=== PATIENT | female | born 1945 | race Caucasian/White ===

== ENCOUNTER → 2017-08-07 07:33 | Outpatient (CLI) | payer MEDICARE, SELFPAY ==
[2017-08-07 10:42] LABS: Alanine Aminotransferase 30 U/L (12-78); Albumin Level 3.9 gm/dL (3.4-5.0); Albumin/Globulin Ratio 1.3 (1.1-1.8); Alkaline Phosphatase 81 U/L (46-116); Aspartate Amino Transferase 24 U/L (15-37); Bilirubin,Total 0.4 mg/dL (0.2-1.0); Blood Urea Nitrogen 16 mg/dL (7-18); Carbon Dioxide 31 mmol/L (21.0-32.0); Chloride 102 mmol/L (98-107); Cholesterol 210 mg/dL (140-200); Creatinine,Serum 0.64 mg/dL (0.55-1.02); Estimated Glomerular Filt Rate 91 ml/min (>60); Free T4 (Free Thyroxine) 1.15 ng/dl (0.76-1.46); GFR (African American) 111 ML/MIN (>60); Globulin 3.1 gm/dl (1.3-3.2); Glucose 85 mg/dL (74-106); HDL Cholesterol 103 mg/dL (29-89); LDL Cholesterol 86 mg/dL (0-130); Sodium 140 mmol/L (136-145); Thyroid Stimulating Hormone 0.85 uIU/ml (0.358-3.740); Triglycerides 103 mg/dL (30-200); VLDL Cholesterol 21 mg/dL (0-40)
[2017-08-08 11:18] LABS: Creatinine, Urine 44.2 mg/dL (Not Estab.); Microalbumin, Urine 4.6 ug/mL (Not Estab.)
== END ==
PROVIDERS: PCP Family Medicine; Visit Provider Family Medicine
DX: E78.00 Pure hypercholesterolemia, unspecified (principal); E03.9 Hypothyroidism, unspecified
CPT/HCPCS: 36415; 80053; 80061; 82043; 84439; 84443

== ENCOUNTER → 2017-10-01 09:33 | Outpatient (POV) | payer MEDICARE, SELFPAY | PROVIDERS: Family Provider Family Medicine; PCP Family Medicine; Visit Provider Physician Assistant | DX: Z00.00 Encounter for general adult medical examination without abnormal findings (principal) ==

== ENCOUNTER → 2017-11-05 10:09 | Outpatient (CLI) | payer MEDICARE, SELFPAY ==
--- NOTE | 2017-11-05 10:15 | XR_ITS ---
XR DEXA axial skeleton HISTORY: ITS.REASON: OSTEOPENIA ORDERING PHYSICIAN: Maged Stoll MD PATIENT AGE: 72 years COMPARISON: 12/19/2011 FINDINGS: The BMD measured at the Femur Total left is 0.913 g/cm squared with a T score of -0.8. This is considered normal according to the World Health Organization criteria. Fracture risk is low. L1-L4 density has a T score of 0.4. The lumbar spine density has increased by 4% in the hip density has decreased by 4.6% compared to the previous exam.. IMPRESSION: Normal bone density. Suggest follow-up exam October 2019
== END ==
PROVIDERS: Family Provider Family Medicine; PCP Family Medicine; Visit Provider Family Medicine
DX: M85.89 Other specified disorders of bone density and structure, multiple sites (principal)
CPT/HCPCS: 77080

== ENCOUNTER → 2018-03-27 09:09 | Outpatient (CLI) | payer MEDICARE, SELFPAY ==
--- NOTE | 2018-03-27 09:14 | XR_ITS ---
XR foot wt bearing LT 3V HISTORY: ITS.REASON: pain ORDERING PHYSICIAN: Katia Hernandez DPM PATIENT AGE: 72 years COMPARISON: None FINDINGS: There is minimal hallux valgus with hypertrophic change of the distal aspect of the first metatarsal. Normal alignment. Small calcaneal spur. No fracture or dislocation. IMPRESSION: Minimal hallux valgus with hypertrophy of the distal first metatarsal
--- NOTE | 2018-03-27 09:14 | XR_ITS ---
XR foot wt bearing RT 3V HISTORY: ITS.REASON: pain ORDERING PHYSICIAN: Katia Hernandez DPM PATIENT AGE: 72 years COMPARISON: None FINDINGS: There is mild hallux valgus with osteoarthritis of the first MTP joint and bunion formation. No fracture or dislocation. Small calcaneal spur. IMPRESSION: Hallux valgus with osteoarthritis of the first MTP joint and bunion formation
== END ==
PROVIDERS: PCP Family Medicine; Visit Provider Podiatrist
DX: M79.673 Pain in unspecified foot (principal)
CPT/HCPCS: 73630

== ENCOUNTER → 2018-05-13 10:23 | Outpatient (CLI) | payer MEDICARE, SELFPAY ==
--- NOTE | 2018-05-13 10:25 | MM_ITS ---
MM Dig screening mamm BI w/CAD ORDERING PHYSICIAN : Maged Stoll MD PATIENT AGE: 72 years GENDER: Female COMPARISON: April 2014, 2014 2016. INDICATION: ITS.REASON: SCREENING takes Evista. No new complaints Family history. Maternal cousin TECHNIQUE: Standard CC and MLO images were obtained. R2 CAD reviewed. FINDINGS: Lower density breast. Mild fatty replacement Minimal residual fibroglandular elements. .. No suspicious dominant mass or calcifications. CAD computer review highlights no areas of concern either RIGHT BREAST:Stable right breast. Follow-up in one year LEFT BREAST:. Stable left breast. Minor asymmetric density at the lateral left breast on cc view is similar to previous studies from 2014. No new findings IMPRESSION: . No significant new findings. No areas of concern. Bilateral follow-up recommended one year BI-RADS Category: 1 Negative RECOMMENDED FOLLOW-UP: 1YR 1 YEAR FOLLOW-UP (A letter has been sent to the patient regarding results of the study.)
== END ==
PROVIDERS: PCP Family Medicine; Visit Provider Family Medicine
DX: Z12.31 Encounter for screening mammogram for malignant neoplasm of breast (principal)
CPT/HCPCS: 77067

== ENCOUNTER → 2018-11-15 09:49 | Outpatient (CLI) | payer MEDICARE, SELFPAY ==
--- NOTE | 2018-11-15 10:01 | CT_ITS ---
CT abdomen pelvis w con CLINICAL INDICATION: . Umbilical pain ITS.REASON: ABD PAIN ORDERING PHYSICIAN: Maged Stoll MD PATIENT AGE: 73 years COMPARISON: None TECHNIQUE: Axial images obtained with sagittal and coronal reformats. All CT scans at the facility use one or more dose reduction, viz: automated exposure control, ma/kV adjustment per patient size (including targeted exams where dose is matched to indication, i.e. head), or iterative reconstruction technique. PROCEDURE: Oral Contrast: None IV Contrast: 75 mL's Optiray 350. FINDINGS: Lower thorax: No acute finding The liver, spleen, adrenal glands, and pancreas have an unremarkable appearance. There are postcholecystectomy changes. There is a 4 cm left renal cyst along the posterior and superior aspect of the left kidney. No renal or ureteral calculi are evident.. There is mild ectasia of both renal collecting systems but no obvious ureteral calculi Unremarkable appendix. No intestinal obstruction or free air. No evidence of diverticulitis. There is mild thickening of the sigmoid colon and rectum nonspecific but could be related to colitis/proctitis. No pelvic mass or abnormal pelvic fluid collection No acute bony anomalies are evident. There are degenerative changes in the lumbar spine. IMPRESSION: 1. Mild thickening of the sigmoid colon and rectum which could be related to nondistention or mild proctocolitis. 2. Minimal ectasia of both renal collecting systems without obvious ureteral calculus. 3. Otherwise negative CT abdomen pelvis
--- NOTE | 2018-11-15 10:40 | HMH.ITSHM ---
Current Home Medications as stated by this patient Anca Martinez or floor representative. []ATORVASTATIN RALOXIFENE LOSARTAN LEVOTHYROXINE
== END ==
PROVIDERS: PCP Family Medicine; Visit Provider Family Medicine
DX: R10.33 Periumbilical pain (principal)
CPT/HCPCS: 74177

== ENCOUNTER → 2018-11-26 10:50 | Outpatient (POV) | payer MEDICARE, SELFPAY | PROVIDERS: Visit Provider Dermatology | DX: Z00.00 Encounter for general adult medical examination without abnormal findings (principal) ==

== ENCOUNTER 2019-01-03 10:23 | Day surgery (SDC) | payer MEDICARE, SELFPAY ==
[2018-12-31 14:00] VITALS: BMI 24.7
[2019-01-03] VITALS (7 sets, daily range): BP systolic 101–173; BP diastolic 57–91; PULSE 68–85; RESP 16–18; TEMP 36.1–36.2; O2SAT 97–99
--- NOTE | 2019-01-03 12:12 | P.PN_ITS ---
[facility] Anesthesia Checklist - Patient Identification Patient Identification: Arm Band, Verbal (Name & ) - Structural Data Admitted From: Home Planned Operative Procedure/s: Colonoscopy Consent for Planned Operative Procedure(s) Verified: Yes Verified Documents: Surgical Consent, History and Physical - NPO Status Verified Time NPO: 00:00 - Additional verifications Anesthesia Reactions: Yes (PONV) - Airway Assessment C-Spine Mobility Assessed: Yes TMJ Mobility Assessed: Yes Dentition: Good Dentition - Neurological Assessment Level of Consciousness: Awake, Alert, Appropriate, Follows Commands Hx Seizures: No Numbness or tingling in extremities: No - Anesthesia Plan Anesthesia Risk discussed: Yes Anesthesia Plan: Verified ASA Class: II Anesthesia Type: MAC [facility] History I have reviewed the patient's past medical history: Yes Medical History: Reports:: Hyperlipidemia, Hypertension Denies:: Diabetes Mellitus Type 1, Diabetes Mellitus Type 2, Internal Pacemaker, Lung Disease, Seizures *Have you ever received a pneumonia vaccine?: Yes *Have you received a flu vaccine this season?: No Other Medical History: Reports: Hypothyroidism Other Surgeries: Yes: Cholecystectomy, Tubal Ligation, Other. No: Pacemaker - *Social History Smoking Status: Never smoker Alcohol Intake: never Alcohol Intake Frequency:: other *Occupational Status:: other (NA) *Travel in the last 8 weeks: None (Unknown) Family Hx:: Hypertension, Diabetes
--- NOTE | 2019-01-03 12:24 | HMH.PROC ---
[facility] Procedure Note Procedure Note:: Colonoscopy Procedure Report: Colonoscopy with cold snare polypectomy Endoscopist: Sami Ellsworth II, MD Referring physician: Maged Stoll MD Date of Procedure: January 03, 2019 Equipment: Olympus 180 variable stiffness pediatric colonoscope Sedation: MAC sedation Indication: Mrs. Martinez is a 73-year-old female who is here for diagnostic colonoscopy. She states that she had antibiotics for a sinus infection in July 2018. She had repeat antibiotics again and August 2018 for a tooth infection. I believe that she had a repeat sinus infection thereafter with more antibiotics. She developed left lower quadrant abdominal pain and discomfort. She did have a CT scan of the abdomen on November 15, 2018 that showed mild thickening of the sigmoid colon and rectum possibly related to proctocolitis. The patient reports no change in her bowel habits or rectal bleeding. She reports no weight loss. She does state that she had a maternal grandmother and 2 maternal uncles with colon cancer. She had a paternal aunt with Crohn's disease. Her last colonoscopy was 9 years ago at [facility]. Procedure: Prior to the procedure, a history and physical exam was performed, and patient's medications and allergies were reviewed. The risks, benefits and alternatives of the sedation and procedure were discussed with the patient. All questions were answered and informed consent was obtained. The patient was brought to the procedure room. Patient identification and proposed procedure were verified by the physician and the nurse. The patient was placed in a left lateral decubitus position and the scope was passed under direct vision. Throughout the procedure, the patient's blood pressure, pulse, and oxygen saturations were monitored continuously. The colonoscopy was accomplished without difficulty. The patient tolerated the procedure well. Findings: On digital rectal examination there was normal rectal tone. There were no external hemorrhoids. The colonoscope was introduced through the anal canal to the rectum and advanced to the cecum. The ileocecal valve and appendiceal orifice were identified. The scope was advanced a short distance into the ileum which appeared grossly normal. The scope was then withdrawn into the colon. The cecum, ascending and transverse colon and mucosa were grossly normal. There was a 3 to 4 mm polyp in the transverse colon removed via cold snare polypectomy. There were scattered diverticuli throughout the descending and sigmoid colon (LEFT colon). The rectum itself was normal. Upon retroflexion within the rectum there were grade 1 internal hemorrhoids. The preparation was excellent throughout with [place] Preparation Score of 9. The cecal time was 12 minutes. Impression: 1. Diminutive transverse colon polyp 2. Left-sided diverticulosis 3. Grade 1 internal hemorrhoids Plan: I do feel that she may have low-grade diverticulitis resulting in her symptoms. We will discuss dietary measures and fiber regimen. I will follow-up the polyp histology. If the polyp is adenomatous, I would consider repeat surveillance colonoscopy in 5 years especially based upon her family history.
== END 2019-01-03 13:27 | disposition home or self-care (01) ==
LOC: OUTP 10:24
PROVIDERS: PCP Family Medicine; Visit Provider Internal Medicine Gastroenterology
PROC: 0DJD8ZZ Inspection of Lower Intestinal Tract, Via Natural or Artificial Opening Endoscopic (ICD-10-PCS; CPT 45378; principal; 2019-01-03 11:30)
DX: K63.5 Polyp of colon (principal); K57.30 Diverticulosis of large intestine without perforation or abscess without bleeding; K64.0 First degree hemorrhoids; Z79.2 Long term (current) use of antibiotics
CPT/HCPCS: 45385; 88305

== ENCOUNTER → 2019-06-02 09:09 | Outpatient (CLI) | payer MEDICARE, SELFPAY ==
--- NOTE | 2019-06-02 09:12 | MM_ITS ---
PROCEDURE: MM DIG SCREENING MAMM BI W/CAD CLINICAL INDICATION: SCREENING There is a history of breast cancer patient's paternal cousin. COMPARISON: DMSB DIG MAMM-SCREEN DOMONIQUE W/CAD from 05/09/2017 DEXAAX XR DEXA axial skeleton from 11/05/2017 [facility] MM Dig screening mamm BI w/CAD from 05/13/2018 TECHNIQUE: Standard CC and MLO images were obtained. R2 CAD reviewed. FINDINGS: Mild diffuse scattered fibroglandular densities are seen throughout both breasts. There are 2 mole markers left breast. There is a benign-appearing calcification right breast. There is a stable small area of asymmetric glandular tissue upper outer quadrant left breast there is no new or suspicious lesion in either breast and no suspicious microcalcifications. IMPRESSION: Fibrofatty parenchyma with no suspicious lesions seen BI-RAD Category: 2 Benign Finding(s) FOLLOW-UP: 1YR 1 Year Follow-up (A letter has been sent to the patient regarding results of the study.) Dictated by: Dr. Cain Cordova MD 06/04/2019 14:[address] Cain Cordova MD in [place] 06/04/2019 14:41
== END ==
PROVIDERS: PCP Family Medicine; Visit Provider Family Medicine
DX: Z12.31 Encounter for screening mammogram for malignant neoplasm of breast (principal)
CPT/HCPCS: 77067

== ENCOUNTER → 2019-12-17 09:02 | Outpatient (CLI) | payer MEDICARE, SELFPAY ==
--- NOTE | 2019-12-17 09:07 | XR_ITS ---
PROCEDURE: XR DEXA AXIAL SKELETON CLINICAL HISTORY: OSTEOPENIA COMPARISON: ABDPELW CT abdomen pelvis w con from 11/15/2018 FINDINGS: Total rib right proximal femur density is 0.884 grams/centimeters sq with T-score of -0 point Total left proximal femur density is 0.822 grams/centimeters sq with T-score -1.0 L1-L4 density is 1.035 grams/centimeters sq with T-score -0.1 IMPRESSION: Normal bone density with low fracture risk. Suggest follow-up exam in 2 years Dictated by: Michael Campoverde MD 12/17/2019 12:33 Electronically signed by Michael Campoverde MD in [place] 12/17/2019 12:33
== END ==
PROVIDERS: PCP Family Medicine; Visit Provider Family Medicine
DX: M85.89 Other specified disorders of bone density and structure, multiple sites (principal)
CPT/HCPCS: 77080

== ENCOUNTER → 2020-06-04 12:48 | Outpatient (CLI) | payer MEDICARE, SELFPAY ==
--- NOTE | 2020-06-04 12:51 | MM_ITS ---
PROCEDURE: MM DIG SCREENING MAMM BI W/CAD Referring Doctor: Maged Stoll Patient Age:74Y CLINICAL INDICATION: SCREENING takes Evista.. No new complaints.. Family history: Maternal with cousin with breast cancer . COMPARISON: MG [facility]MSB DIGITAL MAMM-SCREEN BILATERAL from 12/18/2011 MG DIG MAMMO BILAT SCREENING from 04/21/2013 MG DIG MAMMO BILAT SCREENING from 04/22/2014 MG MAMMO SCREENING DIGITAL BILAT from 04/26/2015 MG MAMMO SCREENING DIGITAL BILAT from 05/03/2016 MG DMSB DIG MAMM-SCREEN DOMONIQUE W/CAD from 05/09/2017 [facility] DEXAAX XR DEXA axial skeleton from 11/05/2017 MG [facility] MM Dig screening mamm BI w/CAD from 05/13/[address] abdomen pelvis w con from 11/15/2018 MG MM DIG SCREENING MAMM BI W/CAD from 06/02/2019 TECHNIQUE: Standard CC and MLO images were obtained. R2 CAD reviewed. Bilateral digital breast tomosynthesis included. FINDINGS: [id number] residual fibroglandular elements but no new suspicious or dominant mass. No suspicious calcifications . Right breast. No new areas of concern . Left breast. On the MLO small 4.5 mm area of density in the deep superior left breast I believe is similar to 2015, 2016 mammogram. With no corresponding density is seen on evident on the CC views. Also note this small density becomes less evident on left MLO tomosynthesis image set. Only vaguely suggested on tomosynthesis image 20 but most likely reflect a longstanding feature However would suggest a follow-up left mammogram in 6-8 months to further confirm stability here to be cautious. IMPRESSION: Left breast Small area of density at the deep superior left breast on MLO is most likely a summation shadow.. Most likely a longstanding feature but perhaps slightly more evident today-thus suggest follow-up 6 months to better confirm stability Right breast: Stable. No new areas of concern. Follow-up 1 year on right BI-RAD Category: 3 Probably Benign Finding Short Term Follow-up FOLLOW-UP: 6M-8 Month Follow-up left breast suggested (A letter has been sent to the patient regarding results of the study.) Dictated by: Rome Pimentel MD 06/09/2020 11:57 Rome Pimentel MD in [place] 06/09/2020 11:57
== END ==
PROVIDERS: PCP Family Medicine; Visit Provider Family Medicine
DX: Z12.31 Encounter for screening mammogram for malignant neoplasm of breast (principal)
CPT/HCPCS: 77063; 77067

== ENCOUNTER → 2020-06-30 14:36 | Outpatient (CLI) | payer MEDICARE, SELFPAY ==
--- NOTE | 2020-06-30 14:36 | MM_ITS ---
PROCEDURE: MM DIG MAMM DX UNILAT LT CAD Digital Breast Tomosynthesis Included CLINICAL INDICATION: with spot views Follow-up abnormal mammogram COMPARISON: MG MM DIG SCREENING MAMM BI W/CAD from 06/04/2020 US US BREAST LT COMPLETE from 06/30/2020 TECHNIQUE: Spot-compression views and left breast ultrasound FINDINGS: The area of asymmetry in the superior left breast is what more ill-defined on spot compression views and may represent an area of asymmetric fibroglandular tissue. Left breast ultrasound: The 2 o'clock region of the left breast there is a 5 mm area of decreased echogenicity which may only be due to fibroglandular tissue. This does appear to elongate. Six-month follow-up is suggested. No suspicious nodules are apparent. IMPRESSION: BI-RAD Category: 3 Probably Benign Finding Short Term Follow-up FOLLOW-UP: 6M 6Month Follow-up (A letter has been sent to the patient regarding results of the study.) Dictated by: Michael Campoverde MD 07/13/2020 12:27 Michael Campoverde MD in [place] 07/13/2020 12:27
== END ==
PROVIDERS: PCP Emergency Medicine; Visit Provider Emergency Medicine
DX: R92.8 Other abnormal and inconclusive findings on diagnostic imaging of breast (principal)
CPT/HCPCS: 76641; 77061; 77065; G0279

== ENCOUNTER → 2020-07-01 10:02 | Outpatient (CLI) | payer MEDICARE, SELFPAY ==
--- NOTE | 2020-07-01 10:03 | CA_ITS ---
APPROVED REPORT EXAM: Comprehensive 2D, Doppler, and color-flow Echocardiogram Pin Drafting Machine Tender: Liberty Nichole CRT Ht: 5 ft 2 in Wt: 130lbs BSA: 1.59 BP: 130/74 mmHg Indications: Murmur, Hyperlipidemia, Hypertension/HDD 2D Dimensions LVOT 1.76 cm (M/F) 1.5-2.5 M-Mode Dimensions RVDd 2.76 cm (0.9-2.6) LA Diam 3.09 cm (1.9-4.0) LVDd 4.50 cm (3.5-5.7) Ao Diam 4.11 cm (2.0-3.7) LVDs 2.64 cm (3.5-5.7) IVSd 1.54 cm (0.6-1.1) PWd 0.52 cm (0.6-1.1) EF (Teich) 72.30% FS 41.30% EDV (Teich) 92.40 mL ESV (Teich) 25.60 mL LV Diastology E Decel Time 153.00 (160-240 msec) E/A Ratio 0.97 MED E' 10.80 (< 7 cm/sec) E'/MED E' Ratio 7.63 (>14) LAT E' 7.80 (<10 cm/sec) E/LAT E' Ratio 10.56 (>14) Aortic Valve AO Peak GR. 4.90 mmHg Mitral Valve MV A Velocity 85.00 (40-130 cm/s) E/A Ratio 0.97 MV Decel. Time 153.00 (160-240 ms) Pulmonary Valve PV Peak Velocity 112.00 (50-150 cm/s) Tricuspid Valve TR P. Velocity 229.00 cm/s RAP Estimate 10.00 mmHg RVSP 31.00 mmHg Left Ventricle Left atrium is mildly enlarged, left ventricle is normal size, mild concentric left ventricular hypertrophy, septum is sigmoid configuration, visually estimated ejection fraction 55% with no regional wall motion abnormality, grade 1 diastolic dysfunction seen without tissue Doppler evidence of raise left atrial pressure. Right Ventricle Right atrium and right ventricular normal size and contractility. Aortic Valve Aortic valve is minimally thickened and fibrosed, there is no aortic stenosis or aortic insufficiency. Mitral Valve Mitral valve is grossly normal, there is mild mitral regurgitation Tricuspid Valve Tricuspid valve is grossly normal, there is mild tricuspid regurgitation, tricuspid regurgitation jet velocity is inadequate for calculation of the right ventricular systolic pressure. Pulmonic Valve Pulmonic valve is poorly visualized. Great Vessels Aortic root is normal size. Pericardium No significant pericardial effusion noted. Conclusion 1. Mildly enlarged left atrium, normal left ventricular size, mild concentric left ventricular hypertrophy, visually estimated ejection fraction 55% with no regional wall motion abnormality, grade 1 diastolic dysfunction seen without tissue Doppler evidence of raise left atrial pressure. 2. Mild mitral and tricuspid regurgitation. 3. No significant pericardial effusion noted. Electronically signed by : Jean Carlos King, 07/01/2020 15:00:23
--- NOTE | 2020-07-01 10:03 | CA_ITS ---
APPROVED REPORT R&D Engineer: CT Laterality: Bilateral Indications: bruit Risk Factors Hypertension: Hyperlipidemia Doppler Spectral Velocity Analysis ECA (R) 98.40/22.50 cm/s ECA (L) 84.80/11.60 cm/s dICA (R) 123.00/39.60 cm/s dICA (L) 111.40/35.10 cm/s Srini (R) 105.90/28.90 cm/s Srini (L) 95.00/27.60 cm/s pICA (R) 93.00/22.50 cm/s pICA (L) 88.00/21.20 cm/s dCCA (R) 115.50/25.70 cm/s dCCA (L) 79.60/23.10 cm/s pCCA (R) 110.10/21.40 cm/s pCCA (L) 64.20/14.80 cm/s Vert (R) 46.90/11.60 cm/s Vert (L) 53.10/18.00 cm/s ICA/CCA 1.10 ICA/CCA 1.40 Findings Duplex evaluation demonstrates stenosis of the right proximal internal carotid artery <20% with PSV <140 cm/sec, EDV <100 cm/sec, and IC/CC Ratio <4.0. Duplex evaluation demonstrates stenosis of the left proximal internal carotid artery <20% with PSV <140 cm/sec, EDV <100 cm/sec, and IC/CC Ratio <4.0. Duplex evaluation demonstrates antegrade flow of the bilateral Vertebral Arteries. Electronically signed by : Michael Campoverde MD 07/01/2020 17:04:58
== END ==
PROVIDERS: PCP Family Medicine; Visit Provider Emergency Medicine
DX: R01.1 Cardiac murmur, unspecified (principal); R09.89 Other specified symptoms and signs involving the circulatory and respiratory systems
CPT/HCPCS: 93306; 93880

== ENCOUNTER → 2020-07-26 09:14 | Outpatient (CLI) | payer MEDICARE, SELFPAY ==
--- NOTE | 2020-07-26 09:15 | CA_ITS ---
APPROVED REPORT Exam: Exercise Treadmill Technologist: Purvi Cabral Ht: 5 ft 2 in Wt: 139 lbs BSA: 1.64 m2 HR: 98 bpm BP: 157/84 mmHg Indications: Chest pain Medical History Medications: Levothyroxine,,,,, Losartan,,,,, Atorvastatin,,,,, Raloxifene,,,,, Stress Test Details Test: Abhishek HR Resting HR: 87 bpm Max Heart Rate (APMHR): 147 bpm Max HR Achieved: 150 bpm Target HR (85% APMHR): 124 bpm % of APMHR: 102 Recovery HR: 96 bpm BP Resting BP: 157.0/84.0 mmHg Max BP: 180.0/88.0 mmHg Recovery BP: 138.0/79.0 mmHg ECG Clinical Exercise duration: 06:06 min Highest Stage Achieved: Exercise capacity: 7.0 METs Stress ECG Conclusion Patient walked 6:06 on Abhishek Protocol. Symptoms: Mild shortness of air at peak exercise. No chest pain. Arrhythmias/Ectopy: PVCs, Ventricular couplets, 3 beat runs of Ventricular tachycardia - asymptomatic. ST-T Changes: baseline ST abnormalities. < 1.[address] segment changes.EKG is negative for ischemia. Test Summary REST . . . . . . . Sitting REST . . . . . . . Standing REST 26:13 0.0 0.0 87 . 157/ 84 . . Stage 1 01:00 10.0 1.7 107 . . . . Stage 1 02:00 10.0 1.7 121 . . . . Stage 1 03:00 10.0 1.7 127 . 140/ 78 . . Stage 2 01:00 12.0 2.5 138 . . . . Stage 2 02:00 12.0 2.5 144 . . . . Stage 2 03:00 12.0 2.5 149 . 156/ 82 . . Stage 3 00:06 14.0 3.4 149 . . . Stop exercise at 06:06 RECOVERY 01:00 0.0 0.0 134 . 180/ 88 . . RECOVERY 02:00 0.0 0.0 120 . 180/ 88 . . RECOVERY 03:00 0.0 0.0 110 . 176/ 85 . . RECOVERY 04:00 0.0 0.0 103 . 151/ 81 . . RECOVERY 05:00 0.0 0.0 97 . 139/ 77 . . RECOVERY 06:00 0.0 0.0 97 . 139/ 77 . . RECOVERY 07:00 0.0 0.0 95 . 138/ 79 . . RECOVERY 07:15 0.0 0.0 94 . 138/ 79 . . Electronically signed by : Jean Carlos King, 07/27/2020 06:41:56
== END ==
PROVIDERS: PCP Emergency Medicine; Visit Provider Internal Medicine
DX: R07.9 Chest pain, unspecified (principal); R42 Dizziness and giddiness; I50.32 Chronic diastolic (congestive) heart failure; I11.0 Hypertensive heart disease with heart failure; E78.2 Mixed hyperlipidemia; I65.29 Occlusion and stenosis of unspecified carotid artery; Z82.49 Family history of ischemic heart disease and other diseases of the circulatory system
CPT/HCPCS: 93017

== ENCOUNTER → 2020-08-18 07:56 | Outpatient (CLI) | payer MEDICARE, SELFPAY ==
--- NOTE | 2020-08-18 | CA_ITS ---
APPROVED REPORT Exam: Exercise Treadmill Technologist: Ginger Coronadode Ht: 5 ft 2 in Wt: 136 lbs BSA: 1.62 m2 HR: 80 bpm BP: 181/84 mmHg Indications: Abnormal stress Medical History Medications: Levothyroxine,,,,, Losartan,,,,, Atorvastatin,,,,, Raloxifene,,,,, Stress Test Details Test: Abhishek HR Resting HR: 90 bpm Max Heart Rate (APMHR): 146 bpm Max HR Achieved: 149 bpm Target HR (85% APMHR): 124 bpm % of APMHR: 102 Recovery HR: 104 bpm BP Resting BP: 181.0/84.0 mmHg Max BP: 200.0/88.0 mmHg Recovery BP: 152.0/81.0 mmHg ECG Resting ECG: Normal sinus rhythm, right atrial enlargement Clinical Exercise duration: 06:32 min Highest Stage Achieved: Exercise capacity: 7.0 METs Stress ECG Conclusion Patient exercised 6:32 on Abhishek Protocol with stage II held to completion. Test stopped due to shortness of air, 100% PM heart rate achieved. Symptoms: No chest pain Arrhythmias/Ectopy: None ST-T Changes: From 0.5 - 2 mm of variable with upsloping ST depression inferiorly and laterally during exercise. Immediately after exercise the ST segments are normal. Conclusion: Equivocal EKG changes. Myoview images reported separately. Test Summary REST . . . . . . . Resting REST . . . . . . . Standing REST 03:11 0.0 0.0 90 . 181/ 84 . . Stage 1 01:00 10.0 1.7 108 . . . . Stage 1 02:00 10.0 1.7 124 . . . . Stage 1 03:00 10.0 1.7 129 . 200/ 88 . . Stage 2 01:00 12.0 2.5 140 . . . . Stage 2 . . . . . . . Myoview Injected Stage 2 02:00 12.0 2.5 144 . . . . Stage 2 . . . . . . . Stage held Stage 2 03:00 12.0 2.5 145 . . . . Stage 2 . . . . . . . Stage resumed Stage 2 03:32 12.0 2.5 147 . . . Stop exercise at 06:32 RECOVERY 01:00 0.0 0.0 127 . . . . RECOVERY 02:00 0.0 0.0 113 . 195/ 80 . . RECOVERY 03:00 0.0 0.0 105 . 182/ 82 . . RECOVERY 04:00 0.0 0.0 105 . 162/ 80 . . RECOVERY 05:00 0.0 0.0 104 . 152/ 81 . . RECOVERY 05:35 0.0 0.0 100 . 152/ 81 . . Electronically signed by : Jean Carlos King, 08/19/2020 10:38:24
--- NOTE | 2020-08-18 07:56 | NM_ITS ---
APPROVED REPORT Exam: Nuclear Stress Test Indication: Chest pain, Abnormal GXT, HTN, High cholesterol, Family history Patient Location: Outpatient Stress Tech: Ginger Castillo [facility] Tech:Carisa Butts, ARRT, RT (R)(N) Ht: 5 ft 2 in Wt: 130 lbs Bra Size: 38C HR: 80 bpm BP: 181/84 mmHg BSA: 1.59 m2 BMI: 23.7 History: Chest pain, Abnormal GXT, HTN, High cholesterol, Family history Procedure: Patient exercised on Abhishek protocol 6:32 minutes and sec, resting heart rate 80 bpm, resting blood pressure 181/84 mmHg, with exercise maximum heart rate achived was 149 bpm which is 102 % of the maximum predicted heart rate and blood pressure was 200/88 mmHg. Test was stopped due to SOA. Patient denied any complaint of chest pain. Patient has Adequate exercise capacity, achieved 7.0 METs of workload on treadmill, the blood pressure response to exercise was Hypertensive. Electrocardiogram Resting electrocardiogram showed sinus rhythm, with exercise there is less than 1.[address] segment depression noted from the baseline EKG. The EKG portion of the exercise Myoview is negative for ischemia. Cardiac Stress and Resting SPECT Images: Cardiac Stress and Resting SPECT images were obtained using technetium 99m Myoview 30.7 mCi stress and 10.55 mCi at rest. Gated SPECT for analysis of segmental wall motion and calculation of the ejection fraction also done. Prone images were also obtained. Cardiac stress and resting SPECT images show uniform myocardial activity without segmental perfusion abnormality, computer derived ejection fraction is over 65% with no regional wall motion abnormality, right ventricle is normal size and contractility. Conclusion: 1. The EKG portion of the exercise Myoview is negative for ischemia, patient has adequate exercise capacity achieved 7 mets of workload on treadmill, the blood pressure response to exercise was hypertensive there was no exercise-induced chest discomfort. 2. No scintigraphic evidence of reversible ischemia seen, computer derived ejection fraction is over 65% with no regional wall motion abnormality, right ventricle is normal size and contractility. 3. Normal exercise Myoview study except for hypertensive blood pressure response with exercise. Electronically signed by : Jean Carlos King, 08/19/2020 10:49:33
--- NOTE | 2020-08-18 10:01 | HMH.ITSHM ---
Current Home Medications as stated by this patient Anca Martinez or care support representative. []RALOXIFENE LOSARTAN LEVOTHYROXINE ATORVASTATIN
== END ==
PROVIDERS: PCP Emergency Medicine; Visit Provider Urology
DX: E78.5 Hyperlipidemia, unspecified (principal); I10 Essential (primary) hypertension; I51.89 Other ill-defined heart diseases; I65.29 Occlusion and stenosis of unspecified carotid artery; R07.9 Chest pain, unspecified; R42 Dizziness and giddiness; Z82.49 Family history of ischemic heart disease and other diseases of the circulatory system
CPT/HCPCS: 78452; 93017; A9502

== ENCOUNTER → 2020-12-08 12:45 | Outpatient (CLI) | payer MEDICARE, SELFPAY ==
--- NOTE | 2020-12-08 12:47 | MM_ITS ---
PROCEDURE: MM DIG MAMM DX UNILAT LT CAD Digital Breast Tomosynthesis Included CLINICAL INDICATION: 6 mth f/u Port COMPARISON: MG MAMMO SCREENING DIGITAL BILAT from 04/26/2015 MG MM DIG SCREENING MAMM BI W/CAD from 06/02/2019 MG MM DIG SCREENING MAMM BI W/CAD from 06/04/2020 MG MM DIG MAMM DX UNILAT LT CAD from 06/30/2020 US US BREAST LT COMPLETE from 06/30/2020 US US BREAST LT COMPLETE from 12/08/2020 TECHNIQUE: Standard CC and MLO images and 3D Tomosynthesis was obtained. R2 CAD reviewed. FINDINGS: Average fibroglandular tissue. No malignant appearing mass or malignant-appearing microcalcification. Previously described area of asymmetry in the deep 1/3 slightly superior aspect of the left breast is not significantly changed in appears to compress out as fibroglandular tissue. There is a benign-appearing nodular density just superior to the nipple at approximately 3 mm and appears stable dating back to 04/26/2015. Left breast ultrasound: There remains a small 5 x 3 mm hypoechoic area in the 2 o'clock region of the left breast not significantly changed possibly related to fibroglandular tissue. No malignant appearing lesions apparent. IMPRESSION: Overall no change with benign findings. Suggest resume bilateral mammogram May 2021 along with left breast ultrasound to confirm 1 year stability of the hypoechoic nodule BI-RAD Category: 2 Benign Finding FOLLOW-UP: 6M 6 Month Follow-up (A letter has been sent to the patient regarding results of the study.) Dictated by: Michael Campoverde MD 12/17/2020 09:19 Michael Campoverde MD in [place] 12/17/2020 09:19
== END ==
PROVIDERS: PCP Emergency Medicine; Visit Provider Emergency Medicine
DX: R92.8 Other abnormal and inconclusive findings on diagnostic imaging of breast (principal)
CPT/HCPCS: 76641; 77061; 77065; G0279

== ENCOUNTER → 2020-12-22 13:26 | Outpatient (CLI) | payer MEDICARE, SELFPAY ==
[2020-12-22 15:41] LABS: Alanine Aminotransferase 31 U/L (12-78); Albumin Level 4.8 g/dl (3.5-5.0); Albumin/Globulin Ratio 1.8 (1.1-1.8); Alkaline Phosphatase 81 U/L (38-126); Anion Gap 10.5 mEq/L (5-15); Aspartate Amino Transferase 37 U/L (14-36); Bilirubin,Total 0.6 mg/dl (0.2-1.3); Blood Urea Nitrogen 19 mg/dl (7-17); Calcium 9.7 mg/dl (8.4-10.2); Carbon Dioxide 30 mmol/L (22.0-30.0); Chloride 102 mmol/L (98-107); Cholesterol 224 mg/dl (140-200); Estimated Glomerular Filt Rate 98 ml/min (>60); GFR (African American) 118 ML/MIN (>60); Globulin 2.7 g/dL (1.3-3.2); Glucose 99 mg/dl (74-100); Potassium 4.5 mmoL/L (3.5-5.1); Sodium 138 mmol/L (136-145); Total Protein,Serum 7.5 g/dl (6.3-8.2); Triglycerides 106 mg/dl (30-150); VLDL Cholesterol 21 mg/dL (0-40)
[2020-12-22 15:52] LABS: Direct LDL Cholesterol 84.73 mg/dL (100-129)
[2020-12-22 15:55] LABS: HDL Cholesterol 113 mg/dl (40-60)
[2020-12-22 15:57] LABS: 25-OH Vitamin D, Total 55.5 ng/mL (30-100)
[2020-12-22 15:58] LABS: Free T4 (Free Thyroxine) 1.55 ng/dl (0.78-2.19)
[2020-12-22 16:12] LABS: Thyroid Stimulating Hormone 0.27 uIU/mL (0.465-4.68)
[2020-12-22 19:01] LABS: Basophils # 0.1 K/mm3 (0-0.2); Basophils % 0.9 % (0.1-2.0); Eosinophils # 0.1 K/mm3 (0.0-0.4); Eosinophils % 2.4 % (0.1-12.0); Hematocrit 41.3 % (37.0-47.0); Hemoglobin 13.7 g/dL (12.2-16.2); Lymphocytes # 1.3 K/mm3 (0.7-4.5); Lymphocytes % 24.9 % (10-50); Mean Corpuscular HGB Conc 33.1 g/dL (31.8-35.4); Mean Corpuscular Hemoglobin 31.2 pg (27.0-31.2); Mean Platelet Volume 10.5 fl (7.4-10.4); Monocytes # 0.4 K/mm3 (0.1-1.0); Monocytes % 7.7 % (1.7-9.3); Neutrophils # 3.4 K/mm3 (1.8-7.8); Neutrophils % 64.2 % (37.0-80.0); Platelet Count 187 K/mm3 (142-424); Red Blood Count 4.39 M/mm3 (4.20-5.40); Red Cell Distribution Width 13.2 % (11.5-17.5); White Blood Count 5.3 K/mm3 (4.8-10.8)
== END ==
PROVIDERS: Visit Provider Emergency Medicine
DX: R07.9 Chest pain, unspecified (principal); R42 Dizziness and giddiness; E78.5 Hyperlipidemia, unspecified; E55.9 Vitamin D deficiency, unspecified
CPT/HCPCS: 80053; 80061; 82306; 84439; 84443; 85025

== ENCOUNTER → 2021-06-13 14:32 | Outpatient (CLI) | payer MEDICARE, SELFPAY ==
--- NOTE | 2021-06-13 14:38 | MM_ITS ---
PROCEDURE INFORMATION: Exam: MG Bilateral Diagnostic Breast Tomosynthesis Exam date and time: 06/13/2021 2:38 PM Age: 75 years old Clinical indication: Continued short-term surveillance for sonographically visible left breast mass. Annual mammographic screening TECHNIQUE: Imaging protocol: Bilateral Diagnostic tomosynthesis and 2D mammography including computer-aided detection (CAD) when performed. Unilateral or bilateral exam. COMPARISON: 1. MG MM DIG MAMM DX UNILAT LT CAD 12/08/2020 1:04 PM 2. MG MM DIG MAMM DX UNILAT LT CAD 06/30/2020 2:46 PM FINDINGS: MAMMOGRAPHY: The breast tissue is composed of scattered areas of fibroglandular density. There is no stellate mass, architectural distortion or suspicious microcalcifications in either breast to suggest malignancy. No skin thickening or axillary adenopathy. IMPRESSION: No mammographic evidence of malignancy. Annual bilateral mammographic screening is recommended unless otherwise clinically indicated.Patient to be scheduled for a follow-up targeted left breast ultrasound to assess stability of a left 2 o'clock axis subcentimeter hypoechoic mass seen on sonograms dated 06/30/2020 ASSESSMENT: BI-RADS Category 1: Negative, based on the mammogram
--- NOTE | 2021-06-13 14:38 | US_ITS ---
PROCEDURE: US BREAST LT COMPLETE CLINICAL INDICATION: ABN MAMM OF LT BREAST COMPARISON: US US BREAST LT COMPLETE from 12/08/2020 FINDINGS: Hypoechoic area once again noted at 2 o'clock measuring 5 mm possibly due to fibroglandular tissue or debris-filled cyst overall not significantly changed. No suspicious solid mass is apparent. Small nodes are present in the axilla. Posterior acoustical shadowing noted at 1 o'clock felt to be secondary to an overlying skin lesion. IMPRESSION: Overall no significant change. BI-RADS category 2 benign. Recommend annual screening mammogram as well as follow-up left breast ultrasound Dictated by: Michael Campoverde MD 06/20/2021 12:25 Michael Campoverde MD in [place] 06/20/2021 12:25
== END ==
PROVIDERS: PCP Internal Medicine Adolescent Medicine; Visit Provider Internal Medicine Adolescent Medicine
DX: R92.8 Other abnormal and inconclusive findings on diagnostic imaging of breast (principal)
CPT/HCPCS: 76641; 77062; 77066; G0279

== ENCOUNTER 2021-07-14 14:00 | Outpatient (RCR) | payer MEDICARE, SELFPAY ==
--- NOTE | 2021-07-01 11:32 | HMH.OTOPEV ---
OT Inpatient Evaluation Rehab OT Outpatient Eval Start: 07/01/21 10:46 Freq: Status: Active Protocol: Document 07/01/21 10:47 EVAN (Rec: 07/01/21 11:31 EVAN [id number]) Electronically Signed By Carole Bartholomew OT 07/01/21 10:47 Outpatient Therapy Subjective History Subjective History 75 year old female referred to skilled OP OT services for acute left shoulder pain. 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 Patient stated having pain in the left shouler intermittent throughout the day and while sleeping on the left shoulder. Chief Complaint Pain Symptom Type Dull Symptoms Relieved By Ice Symptoms Aggravated By Physical Activity Prior Functional Limitations None Current Functional Limitations Reaching,Lifting Symptom Description Intermittent Level of pain today (0-10) 3 Pain scale - at its best (0-10) 3 Pain scale - at its worst (0-10) 6 Shoulder/Elbow Eval Shoulder Objective Measurements Shoulder ROM Left Shoulder Abduction Active Range of 140 Motion (degrees) Shoulder Flexion Active Range of Motion 155 (degrees) Query Text: Shoulder External Rotation Active Range 50 of Motion (degrees) Shoulder Internal Rotation Active Range 30 of Motion (degrees) pain with active ROM shoulder exam left standard Shoulder MMT Shoulder Abduction Strength Grade 3- Fair- Shoulder Extension Strength Grade 3- Fair- Shoulder Flexion Strength Grade 3- Fair- Shoulder Horizontal Adduction Strength 3- Fair- Grade Infraspinatus/Teres Minor Strength Grade 3- Fair- Shoulder External Rotation Strength 3- Fair- Grade Shoulder Internal Rotation Strength 3- Fair- Grade Shoulder Special Tests impingement sign present shoulder exam left standard Shoulder Empty Can (Supraspinatus) Test Negative Left Shoulder Card-Pravin Impingement Positive Left Test Elbow Objective Measurements OT Outpatient Assessment Impairments Problems/Impairments Impaired Range of Motion, Impaired Strength,Impaired Endurance,Subjective C/O Pain Prognosis Rehab Potential Good Clinical Impression Consistent with Diagnosis Yes Short Term Goals Number of Weeks
== END 2021-07-14 14:05 | disposition home or self-care (01) ==
LOC: OT 14:00
PROVIDERS: PCP Internal Medicine Adolescent Medicine; Visit Provider Internal Medicine Adolescent Medicine
DX: M25.512 Pain in left shoulder (principal)
CPT/HCPCS: 97010; 97014; 97110; 97140; 97165; 97530; G0283

== ENCOUNTER → 2022-05-08 08:59 | Outpatient (CLI) | payer MEDICARE, SELFPAY ==
--- NOTE | 2022-05-08 09:03 | XR_ITS ---
FINAL REPORT TECHNIQUE: Bone densitometry calculations of the lumbar spine and hip were obtained. CLINICAL HISTORY: . screening COMPARISON: 12/17/2019 FINDINGS: DEXA BONE DENSITY AXIAL SKELETON Using L1-4, the bone mineral density of the spine is 1.051 g/cm2, corresponding to T-score of 0.0. Previously measured 1.035 g/cm2, corresponding to T-score of -0.1. Normal bone mineral density. Using the left hip, the bone mineral density of the femoral neck is 0.812 g/cm2, corresponding to a T-score of -1.1. Previously measured 0.822 g/cm2, corresponding to T-score of -1.0. Diminished bone mineral density. NOTE: T-score: Standard deviation compared with peak bone mass of young adult mean. *Following the recommendations of the International Society of Bone densitometry, classification of hip BMD is based on the lower of two T-scores; total hip or femoral neck. IMPRESSION: Diminished bone mineral density of the lumbar spine and left hip consistent with osteopenia. FRAX not reported because: Treated for osteoporosis. Reviewed, Interpreted and Dictated by Balwinder Brunson III, MD Transcribed by Marla Velazquez Authenticated and [facility]
--- NOTE | 2022-05-08 09:33 | MR_ITS ---
FINAL REPORT CLINICAL HISTORY: PAIN IN LEFT SHOULDER. SHOULDER PAIN X1YEAR. PAIN RADIATES DOWN ARM. PAIN WHEN RAISING ARM ABOVE HEAD. FINDINGS: Multiplanar MR imaging of the left shoulder was performed without contrast. There is supraspinatus and infraspinatus tendinosis with partial-thickness, articular surface tears of the supraspinatus and infraspinatus tendons both measuring greater than 50%. There is mild a.c. joint arthrosis with mild outlet narrowing. A moderate amount of fluid is present in the subacromial/subdeltoid bursa. There is diffuse labral degeneration without convincing tear. There is a partial tear of the long head of the biceps tendon. There are moderate glenohumeral degenerative changes. No significant glenohumeral joint effusion is identified. The musculature is intact. There is no evidence of soft tissue mass or cyst. IMPRESSION: Supraspinatus and infraspinatus tendinosis with partial thickness, articular surface tears of the supraspinatus and infraspinatus tendons measuring greater than 50%. Moderate a.c. joint arthrosis with moderate subacromial/subdeltoid bursitis. Partial tear of the long head of the biceps tendon. Reviewed, Interpreted and Dictated by Balwinder Brunson III, MD Transcribed by Sherry Ivy Authenticated and [facility]
== END ==
PROVIDERS: PCP Nurse Practitioner Family; Visit Provider Nurse Practitioner Family
DX: Z13.820 Encounter for screening for osteoporosis (principal); Z78.0 Asymptomatic menopausal state; M25.512 Pain in left shoulder; M12.812 Other specific arthropathies, not elsewhere classified, left shoulder; G89.29 Other chronic pain
CPT/HCPCS: 73221; 77080

== ENCOUNTER → 2022-06-29 10:46 | Outpatient (CLI) | payer MEDICARE, SELFPAY ==
--- NOTE | 2022-06-29 10:49 | MM_ITS ---
PROCEDURE INFORMATION: Exam: MG Bilateral Screening 3D Mammography Exam date and time: 06/29/2022 10:49 AM Age: 76 years old Clinical indication: Screening examination TECHNIQUE: Imaging protocol: Bilateral Screening tomosynthesis and 2D mammography including computer-aided detection (CAD) when performed. COMPARISON: 1. MG MM DIG MAMM BI DX W/CAD 06/13/2021 3:02 PM 2. MG MM DIG MAMM DX UNILAT LT CAD 12/08/2020 1:04 PM FINDINGS: MAMMOGRAPHY: Breast composition: The breasts are almost entirely fatty. Mass: None. Architectural distortion: None. Calcifications: No suspicious calcifications. Asymmetric density: None. Skin thickening: None. Axillary adenopathy: None. IMPRESSION: No mammographic evidence of malignancy. Annual screening is recommended unless otherwise clinically indicated. ASSESSMENT: BI-RADS Category 1: Negative
== END ==
PROVIDERS: PCP Nurse Practitioner Family; Visit Provider Nurse Practitioner Family
DX: Z12.31 Encounter for screening mammogram for malignant neoplasm of breast (principal)
CPT/HCPCS: 77063; 77067

== ENCOUNTER → 2023-07-02 10:49 | Outpatient (CLI) | payer MEDICARE, SELFPAY ==
--- NOTE | 2023-07-02 10:58 | MM_ITS ---
PROCEDURE INFORMATION: Exam: MG Bilateral Screening 3D Mammography Exam date and time: 07/02/2023 10:45 AM Age: 77 years old Clinical indication: Screening. No family history of breast cancer. TECHNIQUE: Imaging protocol: Bilateral Screening tomosynthesis and 2D mammography including computer-aided detection (CAD) when performed. COMPARISON: 1. MG MM DIG SCREENING MAMM BI W/CAD 06/29/2022 10:49 AM 2. MG MM DIG MAMM BI DX W/CAD 06/13/2021 3:02 PM 3. MG MM DIG MAMM DX UNILAT LT CAD 12/08/2020 1:04 PM 4. MG MM DIG MAMM DX UNILAT LT CAD 06/30/2020 2:46 PM FINDINGS: MAMMOGRAPHY: Breast composition: The breasts are almost entirely fatty. Mass: None. Architectural distortion: None. Calcifications: No suspicious calcifications. Asymmetric density: None. Skin thickening: None. Axillary adenopathy: None. IMPRESSION: No mammographic evidence of malignancy. Annual screening is recommended unless otherwise clinically indicated. ASSESSMENT: BI-RADS Category 1: Negative
== END ==
PROVIDERS: PCP Nurse Practitioner Family; Visit Provider Nurse Practitioner Family
DX: Z12.31 Encounter for screening mammogram for malignant neoplasm of breast (principal)
CPT/HCPCS: 77063; 77067

== ENCOUNTER 2023-11-14 10:32 | Outpatient (CLI) | payer MEDICARE, SELFPAY ==
--- NOTE | 2023-11-14 11:18 | US_ITS ---
FINAL REPORT TECHNIQUE: Real-time grayscale and color ultrasound of the thyroid was performed. CLINICAL HISTORY: RINGING IN EARS X 3 MONTHS -- PART OF THYROID REMOVED COMPARISON: None FINDINGS: The right thyroid gland is atrophic without suspicious lesion. The left thyroid gland is not visualized and presumed surgically absent or severely atrophic. IMPRESSION: Severe right thyroid atrophy without suspicious lesion. Reviewed, Interpreted and Dictated by Cain Porter MD Transcribed by Devika Kirkland Authenticated and [facility]
[2023-11-14 12:04] LABS: Free T4 (Free Thyroxine) 0.96 ng/dl (0.78-2.19)
[2023-11-14 12:43] LABS: Thyroid Stimulating Hormone 0.41 uIU/mL (0.465-4.68)
== END 2023-11-14 23:59 | disposition home or self-care (01) ==
LOC: RAD 10:33
PROVIDERS: PCP Nurse Practitioner Family; Visit Provider Nurse Practitioner
DX: E03.9 Hypothyroidism, unspecified (principal)
CPT/HCPCS: 36415; 76536; 84439; 84443

== ENCOUNTER 2023-11-14 10:44 | Outpatient (POV) | payer MEDICARE, SELFPAY | END 2023-11-14 23:59 | disposition home or self-care (01) | LOC: SC 10:44 | PROVIDERS: Visit Provider Specialist/Technologist | DX: Z00.00 Encounter for general adult medical examination without abnormal findings (principal) ==

== ENCOUNTER 2024-01-30 09:16 | Outpatient (CLI) | payer MEDICARE, SELFPAY ==
[2024-01-30 09:49] LABS: Basophils % 0.9 % (0.1-2.0); Eosinophils # 0.1 K/mm3 (0.0-0.4); Eosinophils % 2.3 % (0.1-12.0); Hematocrit 37.4 % (37.0-47.0); Hemoglobin 12.3 g/dL (12.2-16.2); Lymphocytes # 1.2 K/mm3 (0.7-4.5); Lymphocytes % 26.3 % (10-50); Mean Corpuscular HGB Conc 32.9 g/dL (31.8-35.4); Mean Corpuscular Hemoglobin 30.9 pg (27.0-31.2); Mean Corpuscular Volume 94.1 fl (81-99); Mean Platelet Volume 8.8 fl (7.4-10.4); Monocytes # 0.4 K/mm3 (0.1-1.0); Monocytes % 7.8 % (1.7-9.3); Neutrophils % 62.7 % (37.0-80.0); Platelet Count 190 K/mm3 (142-424); Red Blood Count 3.98 M/mm3 (4.20-5.40); Red Cell Distribution Width 13.6 % (11.5-17.5); White Blood Count 4.7 K/mm3 (4.8-10.8)
[2024-01-30 10:29] LABS: Alanine Aminotransferase 27 U/L (12-78); Albumin/Globulin Ratio 1.7 (1.1-1.8); Alkaline Phosphatase 81 U/L (38-126); Anion Gap 9.5 mEq/L (5-15); Aspartate Amino Transferase 36 U/L (14-36); Bilirubin,Total 0.5 mg/dl (0.2-1.3); Blood Urea Nitrogen 22 mg/dl (7-17); Calcium 9.5 mg/dl (8.4-10.2); Carbon Dioxide 30 mmol/L (22.0-30.0); Chloride 101 mmol/L (98-107); Chol/HDL Ratio 2.1 (1-3.5); Cholesterol 187 mg/dl (140-200); Estimated Glomerular Filt Rate 70 ml/min (>60); GFR (African American) 84 ML/MIN (>60); Globulin 2.4 g/dL (1.3-3.2); Glucose 90 mg/dl (74-100); HDL Cholesterol 87 mg/dl (40-60); Potassium 4.5 mmoL/L (3.5-5.1); Sodium 136 mmol/L (136-145); Total Protein,Serum 6.4 g/dl (6.3-8.2); Triglycerides 133 mg/dl (30-150); VLDL Cholesterol 27 mg/dL (0-40)
[2024-01-30 10:40] LABS: Direct LDL Cholesterol 78.31 mg/dL (100-129)
[2024-01-30 10:58] LABS: Thyroid Stimulating Hormone 1.43 uIU/mL (0.465-4.68)
[2024-01-30 11:22] LABS: Vitamin B12 > 1000 pg/mL (239-931)
== END 2024-01-30 23:59 | disposition home or self-care (01) ==
LOC: LAB 09:19
PROVIDERS: PCP Nurse Practitioner Family; Visit Provider Nurse Practitioner Family
DX: I10 Essential (primary) hypertension (principal); Z00.00 Encounter for general adult medical examination without abnormal findings; E78.2 Mixed hyperlipidemia; E03.9 Hypothyroidism, unspecified; E53.8 Deficiency of other specified B group vitamins
CPT/HCPCS: 36415; 80053; 80061; 82607; 84443; 85025

== ENCOUNTER 2024-05-23 14:30 | Outpatient (CLI) | payer MEDICARE, SELFPAY ==
--- NOTE | 2024-05-23 14:31 | US_ITS ---
FINAL REPORT CLINICAL HISTORY: H/O severe right thyroid atrophy on recent scan COMPARISON: 11/14/2023 FINDINGS: Sonographic images of the thyroid gland were obtained. The right thyroid lobe measures 26 mm. in length. The left thyroid lobe is surgically absent. The thyroid isthmus measures 2 mm. The right thyroid lobe echogenicity is normal. No mass or nodule is identified. IMPRESSION: Stable thyroid exam. Reviewed, Interpreted and Dictated by Balwinder Brunson III, MD Transcribed by Devika Kirkland Authenticated and [facility]
[2024-05-23 15:29] LABS: Free T4 (Free Thyroxine) 1.09 ng/dl (0.78-2.19)
[2024-05-23 15:43] LABS: Thyroid Stimulating Hormone 0.57 uIU/mL (0.465-4.68)
== END 2024-05-23 23:59 | disposition home or self-care (01) ==
LOC: RAD 14:31
PROVIDERS: PCP Nurse Practitioner Family; Visit Provider Nurse Practitioner
DX: E03.4 Atrophy of thyroid (acquired) (principal)
CPT/HCPCS: 36415; 76536; 84439; 84443

== ENCOUNTER 2024-05-29 06:11 | Day surgery (SDC) | payer MEDICARE, SELFPAY ==
[2024-05-23 13:17] VITALS: BMI 26.5
[2024-05-29 06:51] VITALS: BP 145/64; PULSE 67; RESP 18; TEMP 36.3; O2SAT 98
[2024-05-29] MEDS: LACTATED RINGERS 1000ML 1,000 ML 25 ML IV (07:03)
--- NOTE | 2024-05-29 07:32 | P.PNANES_ITS ---
[facility] Disclaimer: The information contained in this section may have been updated after the patient was seen, as this information can be updated by other users. Medical History History of fractured kneecap Pre-op evaluation Stiffness of neck Thyroid atrophy Lymphadenopathy Tinnitus CAD (coronary artery disease) Diastolic dysfunction Dizziness Family history of heart disease Carotid artery stenosis Surgical History History of tubal ligation Hx of cholecystectomy History of spinal surgery History of thyroid surgery Family History Other No significant family history Social History (Updated 05/29/24 @ 07:02 by Linda Owens RN) Smoking Status: Never smoker alcohol intake: never substance use type: denies use current occupational status: retired Travel in the last 8 weeks: None household members: other housing: house caffeine: No [facility] Anesthesia Checklist Patient Identification Patient Identification: Arm Band and Verbal (Name & ) Structural Data Admitted From: Home Planned Operative Procedure/s: Colonoscopy Consent for Planned Operative Procedure(s) Verified: Yes Verified Documents: Surgical Consent and History and Physical NPO Status Verified Time NPO: 05:00 Chart Verification Results Verified: CBC, BMP and ECG Additional verifications Patient : No Anesthesia Reactions: Yes (PONV) Previous Colonoscopy: Yes Cardiovascular Assessment Heart Sounds: S1 & S2 Pulse Rhythm: Irregular Peripheral Edema: No Airway Assessment Mallampati Score:: Class II C-Spine Mobility Assessed: Yes (FROM demonstrated) TMJ Mobility Assessed: Yes Dentition: Good Dentition (Nothing loose per pt.) Neurological Assessment Level of Consciousness: Awake, Alert, Appropriate and Follows Commands Hx Seizures: No Numbness or tingling in extremities: No Anesthesia Plan Anesthesia Risk discussed: Yes Anesthesia Plan: Verified ASA Class: III Anesthesia Type: MAC
[2024-05-29 08:11] VITALS: O2SAT 98
--- NOTE | 2024-05-29 08:11 | EXP.HP ---
History of Present Illness *Admission Date: 05/29/24 *Reason for visit:: Surveillance/personal history of adenomatous polyps *History of present illness: Mrs. Martinez is a 78-year-old female who is here for surveillance colonoscopy secondary to a personal history of colon polyps. The examination is deemed medically necessary for colonoscopy. The patient has been seen, interviewed and examined prior to the procedure by both myself and the anesthesia provider. [facility] Disclaimer: The information contained in this section may have been updated after the patient was seen, as this information can be updated by other users. Medical History (Updated 05/29/24 @ 08:14 by Sami Ellsworth II, MD) History of fractured kneecap Pre-op evaluation Stiffness of neck Thyroid atrophy Lymphadenopathy Tinnitus CAD (coronary artery disease) Diastolic dysfunction Dizziness Family history of heart disease Carotid artery stenosis Surgical History History of tubal ligation Hx of cholecystectomy History of spinal surgery History of thyroid surgery Family History Other No significant family history Social History (Updated 05/29/24 @ 07:02 by Linda Owens RN) Smoking Status: Never smoker alcohol intake: never substance use type: denies use current occupational status: retired Travel in the last 8 weeks: None household members: other housing: house caffeine: No Other Medical History Have you received the Flu Vaccine for this season: No Have you received the Pneumonia Vaccine: Yes Review of Systems Review of Systems Review of systems (narrative): Negative *Cardiovascular Comments: Negative *Gastrointestinal Comments: Negative *Genitourinary Comments: Negative *Musculoskeletal Comments: Negative *Neurologic Comments: Negative Meds Home Medications and Allergies Home Medications ?Medication ?Instructions ?Recorded ?Confirmed ?Type losartan 50 mg tablet 50 mg PO DAILY BP 90 days #90 tabs 06/22/20 05/29/24 Rx raloxifene 60 mg tablet 60 mg PO DAILY B[facility] HEALTH 90 days 06/22/20 05/29/24 Rx #90 tabs coenzyme Q10 75 mg capsule (Ultra 100 mg PO DAILY 12/22/20 05/29/24 History CoQ10) multivitamin (Daily Multi-Vitamin 1 tab PO DAILY 12/22/20 05/29/24 History tablet) aspirin 81 mg tablet,delayed 81 mg PO DAILY #30 tabs 01/04/23 11/14/24 Rx release (Adult Low Dose Aspirin) L.acidophilus-L.plantarum-L.rhamnosus 1 cap PO DAILY 01/24/23 05/29/24 History 1 billion cell capsule,delay rel (Probiotic Pearls Women's) lewaxsvtwww-jfs-binxpiqeb-hrb 1 tab PO DAILY 01/24/23 05/29/24 History 149-hyalur 500 mg-500 mg-66.7 mg tablet (Fnhvjvqubir-Fadmnpqqdxw-MCU (with antiox)) levothyroxine 88 mcg tablet 88 mcg PO DAILY 07/25/23 05/29/24 History (Synthroid) ascorbic acid (vitamin C) 500 mg 500 mg PO DAILY 11/12/23 05/29/24 History tablet atorvastatin 10 mg tablet 10 mg PO DAILY 11/12/23 05/29/24 History calcium 315 mg (as 1 tab PO DAILY 11/12/23 05/29/24 History citrate)-vitamin D3 5 mcg (200 unit) tablet (Calcium Citrate + D) cetirizine 1 mg/mL oral solution 5 mg PO DAILY 11/12/23 05/29/24 History (Allergy Relief (cetirizine)) cholecalciferol (vitamin D3) 50 50 mcg PO DAILY 11/12/23 05/29/24 History mcg (2,000 unit) capsule zinc acetate 50 mg (zinc) capsule 50 mg PO DAILY 11/12/23 05/29/24 History (Galzin) sodium,potassium,mag sulfates 17.5 See Rx Instructions PO .COMPLEX 05/08/24 05/29/24 Rx gram-3.13 gram-1.6 gram oral soln #354 mL (Suprep Bowel Prep Kit) bisoprolol fumarate 5 mg tablet 5 mg PO DAILY 05/29/24 05/29/24 History New Prescriptions to Start Prescriptions: Allergies Allergy/AdvReac Type Severity Reaction Status Date / Time No Known Allergies Allergy Verified 05/29/24 06:43 Exam Data for Last 24 hours Vital signs and Labs for Last 24 Hours: Temp Pulse Resp BP Pulse Ox O2 Del Method 97.3 F L 67 18 145/64 H 98 Room Air 05/29/24 06:51 05/29/24 06:51 05/29/24 06:51 05/29/24 06:51 05/29/24 06:51 05/29/24 06:51 *Routine HEENT Exam Head: Present normocephalic Eye: Present EOMI and PERRL ENT: Present mucous membranes moist *Routine Neck Exam Neck: Present supple *Routine Respiratory Exam Respiratory: Present CTA bilaterally *Routine Cardiovascular Exam Cardiovascular: Present RRR *Routine Abdominal Exam Abdominal: Present soft and normoactive bowel sounds; Absent tenderness *Routine Rectal Exam Rectal:: deferred *Routine Genitalia Exam Genitalia:: deferred *Routine Extremities Exam Extremities: Absent cyanosis, clubbing or edema *Routine Skin Exam Skin: Present warm; Absent rash *Routine Neurological Exam Neurological: Present alert and oriented X3 Assessment and Plan *Assessment and plan (1) Personal history of adenomatous and serrated colon polyps: Status: Acute Category: Medical Code(s): Z86.0101 - Personal history of adenomatous and serrated colon polyps Plan A/P: 1. Surveillance secondary to personal history of adenomatous colon polyps is the preprocedural diagnosis. The patient will be anesthetized/sedated using MAC sedation. The patient has been seen and examined. Cardiac and lung assessment prior to the examination is stable. Proceed with planned colonoscopy
--- NOTE | 2024-05-29 08:15 | P.PCN_ITS ---
[facility] Procedure Note Date: 05/29/24 Time: 08:28 Procedure Note:: Colonoscopy Procedure Report: Colonoscopy with cold snare polypectomy Endoscopist: Sami Ellsworth II, MD Referring physician: JANESSA Pina Date of Procedure: May 29, 2024 Equipment: Olympus 190 variable stiffness pediatric colonoscope Sedation: MAC sedation Indication: Mrs. Martinez is a 78-year-old female who is here for follow-up surveillance colonoscopy. The patient did have a colonoscopy in December 2018. At that time she had a single polyp (tubular adenoma) which was removed. She does state that her maternal grandfather and possibly 2 maternal uncles had colon cancer. Her paternal aunt had Crohn's disease. She reports no abdominal pain, weight loss, change in her bowel habits or rectal bleeding. Procedure: Prior to the procedure, a history and physical exam was performed, and patient's medications and allergies were reviewed. The risks, benefits and alternatives of the sedation and procedure were discussed with the patient. All questions were answered and informed consent was obtained. The patient was brought to the procedure room. Patient identification and proposed procedure were verified by the physician and the nurse. The patient was placed in a left lateral decubitus position and the scope was passed under direct vision. Throughout the procedure, the patient's blood pressure, pulse, and oxygen saturations were monitored continuously. The colonoscopy was accomplished without difficulty. The patient tolerated the procedure well. Findings: On digital rectal examination there was normal rectal tone. There were no external hemorrhoids. The colonoscope was introduced through the anal canal to the rectum and advanced to the cecum. The ileocecal valve and appendiceal orifice were identified. The scope was advanced a short distance into the ileum which appeared grossly normal. The scope was then withdrawn into the colon. There were 3 polyps (cecum x 2 (3 and 4 mm) and descending x 1 (pedunculated 8 mm)) which were all removed via cold snare polypectomy. The remaining cecum, ascending and transverse colon and mucosa were grossly normal. There were scattered diverticuli throughout the descending and sigmoid colon (LEFT colon). The rectum itself was normal. Upon retroflexion within the rectum there were grade 1-2 internal hemorrhoids. The preparation was excellent throughout with [place] Preparation Score of 9. The cecal time was 13 minutes. Impression: 1. Colonic polyps x 3 2. Left-sided diverticulosis 3. Grade 1-2 internal hemorrhoids Plan: I will follow-up the polyp histology. Based upon the patient's age, I am not convinced that she needs further surveillance colonoscopy. I will discuss the findings with the patient and family.
[2024-05-29 08:32] VITALS: BP 86/47; PULSE 59; RESP 16; TEMP 36.5; O2SAT 93
[2024-05-29 08:42] VITALS: BP 108/53; PULSE 62; RESP 18; O2SAT 98
[2024-05-29 08:52] VITALS: BP 104/64; PULSE 62; RESP 18; O2SAT 98
[2024-05-29 09:02] VITALS: BP 111/64; PULSE 61; RESP 18; O2SAT 97
== END 2024-05-29 09:05 | disposition home or self-care (01) ==
PROVIDERS: PCP Nurse Practitioner Family; Visit Provider Internal Medicine Gastroenterology
PROC: (CPT 45385; principal; 2024-05-29 08:00)
DX: D12.0 Benign neoplasm of cecum (principal); D12.4 Benign neoplasm of descending colon; Z86.0101 Personal history of adenomatous and serrated colon polyps
CPT/HCPCS: 45385; 88305; J7120

== ENCOUNTER 2024-07-03 08:14 | Outpatient (CLI) | payer MEDICARE, SELFPAY ==
[2024-07-03 08:58] LABS: Hematocrit 37.2 % (37.0-47.0); Hemoglobin 11.8 g/dL (12.2-16.2); Mean Corpuscular HGB Conc 31.7 g/dL (31.8-35.4); Mean Corpuscular Hemoglobin 29.1 pg (27.0-31.2); Mean Corpuscular Volume 91.9 fl (81-99); Red Blood Count 4.05 M/mm3 (4.20-5.40)
[2024-07-03 08:59] LABS: Basophils # 0.1 K/mm3 (0-0.2); Basophils % 1.2 % (0.1-2.0); Eosinophils # 0.2 K/mm3 (0.0-0.4); Eosinophils % 3.7 % (0.1-12.0); Lymphocytes # 1.2 K/mm3 (0.7-4.5); Lymphocytes % 29.9 % (10-50); Mean Platelet Volume 10.7 fl (7.4-10.4); Monocytes # 0.4 K/mm3 (0.1-1.0); Monocytes % 10.5 % (1.7-9.3); Neutrophils # 2.2 K/mm3 (1.8-7.8); Neutrophils % 54.5 % (37.0-80.0); Platelet Count 190 K/mm3 (142-424); Red Cell Distribution Width 12.7 % (11.5-17.5)
[2024-07-03 09:11] LABS: Albumin Level 4.2 g/dl (3.5-5.0); Chloride 103 mmol/L (98-107); Sodium 132 mmol/L (136-145)
[2024-07-03 09:12] LABS: Potassium 4.3 mmoL/L (3.5-5.1)
[2024-07-03 09:14] LABS: Alanine Aminotransferase 28 U/L (12-78); Albumin/Globulin Ratio 1.8 (1.1-1.8); Alkaline Phosphatase 64 U/L (38-126); Anion Gap 4.3 mEq/L (5-15); Aspartate Amino Transferase 41 U/L (14-36); Bilirubin,Total 0.6 mg/dl (0.2-1.3); Blood Urea Nitrogen 24 mg/dl (7-17); Carbon Dioxide 29 mmol/L (22.0-30.0); Cholesterol 198 mg/dl (140-200); Estimated Glomerular Filt Rate 81 ml/min (>60); GFR (African American) 98 ML/MIN (>60); Globulin 2.3 g/dL (1.3-3.2); Total Protein,Serum 6.5 g/dl (6.3-8.2); Triglycerides 80 mg/dl (30-150); VLDL Cholesterol 16 mg/dL (0-40)
[2024-07-03 09:15] LABS: Calcium 9.3 mg/dl (8.4-10.2); Chol/HDL Ratio 1.8 (1-3.5); Glucose 92 mg/dl (74-100); HDL Cholesterol 108 mg/dl (40-60)
[2024-07-03 09:31] LABS: Direct LDL Cholesterol 79.99 mg/dL (100-129)
[2024-07-03 11:32] LABS: Vitamin B12 957 pg/mL (239-931)
[2024-07-03 12:10] LABS: Hemoglobin A1C 5.4 % (4.0-6.0)
== END 2024-07-03 23:59 | disposition home or self-care (01) ==
LOC: LAB 08:16
PROVIDERS: PCP Nurse Practitioner Family; Visit Provider Nurse Practitioner Family
DX: I10 Essential (primary) hypertension (principal); R73.03 Prediabetes; E78.2 Mixed hyperlipidemia; E53.8 Deficiency of other specified B group vitamins
CPT/HCPCS: 36415; 80053; 80061; 82607; 83036; 85025

== ENCOUNTER 2024-07-07 13:51 | Outpatient (CLI) | payer MEDICARE, SELFPAY ==
--- NOTE | 2024-07-07 13:54 | MM_ITS ---
PROCEDURE INFORMATION: Exam: MG Bilateral Screening 3D Mammography Exam date and time: 07/07/2024 1:40 PM Age: 78 years old Clinical indication: Screening examination TECHNIQUE: Imaging protocol: Bilateral Screening tomosynthesis and 2D mammography including computer-aided detection (CAD) when performed. COMPARISON: 1. MG MM DIG SCREENING MAMM BI W/CAD 07/02/2023 10:45 AM 2. MG MM DIG SCREENING MAMM BI W/CAD 06/29/2022 10:49 AM FINDINGS: MAMMOGRAPHY: Breast composition: There are scattered areas of fibroglandular density. Mass: No suspicious masses. Architectural distortion: None. Calcifications: No suspicious calcifications. Asymmetric density: None. Skin thickening: None. Axillary adenopathy: None. IMPRESSION: No mammographic evidence of malignancy. Annual screening is recommended unless otherwise clinically indicated. ASSESSMENT: BI-RADS Category 1: Negative.
== END 2024-07-07 23:59 | disposition home or self-care (01) ==
LOC: RAD 13:52
PROVIDERS: PCP Nurse Practitioner Family; Visit Provider Nurse Practitioner Family
DX: Z12.31 Encounter for screening mammogram for malignant neoplasm of breast (principal)
CPT/HCPCS: 77063; 77067

== ENCOUNTER 2024-08-25 12:08 | Outpatient (CLI) | payer MEDICARE, SELFPAY ==
[2024-08-25 12:24] LABS: Hematocrit 38.1 % (37.0-47.0); Hemoglobin 12.1 g/dL (12.2-16.2); Mean Corpuscular HGB Conc 31.8 g/dL (31.8-35.4); Mean Corpuscular Hemoglobin 29.4 pg (27.0-31.2); Mean Corpuscular Volume 92.7 fl (81-99); Platelet Count 192 K/mm3 (142-424); Red Blood Count 4.11 M/mm3 (4.20-5.40); Red Cell Distribution Width 12.5 % (11.5-17.5)
== END 2024-08-25 23:59 | disposition home or self-care (01) ==
LOC: LAB 12:10
PROVIDERS: PCP Nurse Practitioner Family; Visit Provider Nurse Practitioner Family
DX: D72.828 Other elevated white blood cell count (principal)
CPT/HCPCS: 36415; 85027

== ENCOUNTER 2024-10-21 09:13 | Day surgery (SDC) | payer MEDICARE, SELFPAY ==
[2024-10-15 11:08] VITALS: BMI 25.6
[2024-10-21 10:15] VITALS: BP 181/78; PULSE 64; RESP 17; TEMP 36.8; O2SAT 99
[2024-10-21] MEDS: CYCLOPENTOLATE 2% OPHTH SOLN 2ML BOTTLE OP ×3 (10:15→10:25)
[2024-10-21] MEDS: PHENYLEPHRINE 2.5% OPHTH SOLN 2ML OP ×3 (10:15→10:25)
[2024-10-21] MEDS: TETRACAINE 0.5% OPTH SOL 15ML OP ×3 (10:15→10:25)
[2024-10-21 10:57] VITALS: BP 182/80; PULSE 59; RESP 16; O2SAT 95
[2024-10-21] MEDS: MIDAZOLAM 2MG/2ML VIAL 1 MG IV (10:57)
[2024-10-21] MEDS: TOBRAMYCIN/DEX OPTH SUSP 2.5ML OP (11:01)
[2024-10-21 11:02] VITALS: BP 159/73; PULSE 60; RESP 16; O2SAT 97
[2024-10-21] MEDS: LIDOCAINE 1% PF 2ML AMPULE 2 ML IJ (11:02)
[2024-10-21] MEDS: TIMOLOL 0.5% OPTH SOLN 5ML OP (11:02)
[2024-10-21 11:07] VITALS: BP 162/77; PULSE 57; RESP 16; O2SAT 98
[2024-10-21 11:08] VITALS: BP 152/71; PULSE 55; RESP 16; O2SAT 98
[2024-10-21 11:13] VITALS: BP 145/77; PULSE 57; RESP 17; TEMP 36.4; O2SAT 100
--- NOTE | 2024-10-21 11:52 | P.PCN_ITS ---
[facility] Procedure Note Date: 10/21/24 Time: 11:52 Procedure Note:: Preoperative Diagnosis: Cataract combined NS Cortical Complex [Right] Eye Postop diagnosis: same Operation: Microscopic phacoemulsification with intraocular lens implant [Right] Eye Specimen: None Blood Loss: None The patient was examined in the office with a complaint of poor vision in the [right] eye. The patient reports that this interferes with ADLs such as reading, watching TV and/or driving or the vision is like looking through a foggy haze and is very troubling. The patient was examined and found to have a visually significant cataract with best corrected vision of [20/400] by refraction and/or glare testing. Treatment options, risks and benefits were explained and the patient elected to have cataract surgery in an attempt to improve their vision. The patient had the eye anesthetized with topical tetracaine, the eye ways prepped and draped in the usual fashion for cataract surgery. A paracentesis and a temporal keratotomy were made. 0.2cc of 1% lidocaine PF was placed into the anterior chamber. And aqueous/viscoelastic exchange was done and a 360 degree capsulorexis was performed. Through hydrodissection and delineation with BSS on a cannula was done. The lens nucleus was phecoemulsified with CDE of [8.42]. Residual cortical material was removed using automated I&A The capsular bag was deepened with viscoelastica and a PCIOL was placed in the capsular bag with good centration and stability. Residual viscoelastic was removed using automated I&A. The keratotomy incision was hydrated with BSS on a cannula. The wound were checked and found to be water tight. IOP was checked digitally and adjusted as needed so as not to be too high. 1 drop of timolol 0.5%, ofloxacin, prednisolone acetate and ketorolac was instilled and eye shield taped over the eye. The patient was taken to recovery in good condition and will be seen postoperatively.
== END 2024-10-21 11:25 | disposition home or self-care (01) ==
PROVIDERS: PCP Nurse Practitioner Family; Visit Provider Ophthalmology
PROC: (CPT 66984; principal; 2024-10-21 11:30)
DX: H25.011 Cortical age-related cataract, right eye (principal)
CPT/HCPCS: 66984; J2250; V2632

== ENCOUNTER 2024-11-04 08:45 | Day surgery (SDC) | payer MEDICARE, SELFPAY ==
[2024-10-30 13:17] VITALS: BMI 27.4
[2024-11-04 10:52] VITALS: BP 140/80; PULSE 69; RESP 20; TEMP 36.2; O2SAT 100
[2024-11-04] MEDS: CYCLOPENTOLATE 2% OPHTH SOLN 2ML BOTTLE OP ×3 (11:00→11:10)
[2024-11-04] MEDS: PHENYLEPHRINE 2.5% OPHTH SOLN 2ML OP ×3 (11:00→11:11)
[2024-11-04] MEDS: TETRACAINE 0.5% OPTH SOL 15ML OP ×3 (11:05→11:11)
[2024-11-04 11:55] VITALS: BP 185/80; PULSE 60; RESP 16; O2SAT 100
[2024-11-04] MEDS: MIDAZOLAM 2MG/2ML VIAL 1 MG IV (11:55)
[2024-11-04 12:00] VITALS: BP 171/82; PULSE 61; RESP 16; O2SAT 100
[2024-11-04] MEDS: LIDOCAINE 1% PF 2ML AMPULE 2 ML IJ (12:03)
[2024-11-04] MEDS: TIMOLOL 0.5% OPTH SOLN 5ML OP (12:03)
[2024-11-04] MEDS: SODIUM CHLORIDE 0.9% 10ML FLUSH SYRINGE 10 ML IV (12:03)
[2024-11-04] MEDS: TOBRAMYCIN/DEX OPTH SUSP 2.5ML OP (12:03)
[2024-11-04 12:05] VITALS: BP 161/89; PULSE 64; RESP 16; O2SAT 100
[2024-11-04 12:08] VITALS: BP 166/88; PULSE 65; RESP 16; TEMP 36.2; O2SAT 97
--- NOTE | 2024-11-04 14:20 | HMH.PROCNOTE ---
[facility] Procedure Note Date: 11/04/24 Time: 14:20 Procedure Note:: Preoperative Diagnosis: Cataract combined NS Cortical Complex [Left] Eye Postop diagnosis: same Operation: Microscopic phacoemulsification with intraocular lens implant [Left] Eye Specimen: None Blood Loss: None The patient was examined in the office with a complaint of poor vision in the [left] eye. The patient reports that this interferes with ADLs such as reading, watching TV and/or driving or the vision is like looking through a foggy haze and is very troubling. The patient was examined and found to have a visually significant cataract with best corrected vision of [20/400] by refraction and/or glare testing. Treatment options, risks and benefits were explained and the patient elected to have cataract surgery in an attempt to improve their vision. The patient had the eye anesthetized with topical tetracaine, the eye ways prepped and draped in the usual fashion for cataract surgery. A paracentesis and a temporal keratotomy were made. 0.2cc of 1% lidocaine PF was placed into the anterior chamber. And aqueous/viscoelastic exchange was done and a 360 degree capsulorexis was performed. Through hydrodissection and delineation with BSS on a cannula was done. The lens nucleus was phecoemulsified with CDE of [5.97]. Residual cortical material was removed using automated I&A The capsular bag was deepened with viscoelastica and a PCIOL was placed in the capsular bag with good centration and stability. Residual viscoelastic was removed using automated I&A. The keratotomy incision was hydrated with BSS on a cannula. The wound were checked and found to be water tight. IOP was checked digitally and adjusted as needed so as not to be too high. 1 drop of timolol 0.5%, ofloxacin, prednisolone acetate and ketorolac was instilled and eye shield taped over the eye. The patient was taken to recovery in good condition and will be seen postoperatively.
== END 2024-11-04 12:20 | disposition home or self-care (01) ==
PROVIDERS: PCP Nurse Practitioner Family; Visit Provider Ophthalmology
PROC: (CPT 66984; principal; 2024-11-04 11:30)
DX: H25.812 Combined forms of age-related cataract, left eye (principal)
CPT/HCPCS: 66984; J2250; V2632

== ENCOUNTER 2025-05-28 07:37 | Outpatient (CLI) | payer MEDICARE, SELFPAY ==
--- OUTSIDE RECORDS SUMMARY | 2025-05-28 07:41 | XMS_ITS | Data Portability ---
Author Organization [facility] SWEEN[facility] CLOSED Address [address] [place] [address] Care Team Providers Care Staff Electrical Engineer Name Role Phone SWETHA MACARIO Apprentice Lineman Third Step LAUREN HEDRICK Primary Care Provider [phone] Assessment No assessment recorded. Plan of Treatment Reminders Order Date Submit Date Provider Last Modified By Organization Details Last Modified Time Details Appointments None recorded. Lab None recorded. Referral neurologist referral 2016 017 Eber Cruz MD, [address] [facility] [facility], [place], [address], 7 08:02:52 Procedures None recorded. Surgeries None recorded. Imaging None recorded. Medication Orders None recorded. Patient TargetsNo targets recorded. Patient Instructions Encounter Date Encounter Id Patient Instructions Last Modified By Organization Details Last Modified Time 10/26/2016 [id number] 1. MRI temporal bone IAC ordered. 2. Follow up with MRI results or sooner if concerns arise. 3. Consider Neurology referral depending on MRI results. [email or web address] Not available 10/26/2016 13:35:26 12/22/2024 [id number] F/u in 2 years for FBSE. [email or web address] Not available 12/22/2024 14:37:25 Reason for Referral Neurologist Referral for Chr onic pain in face Referring Physician: López Park, Otolaryngology, Encounter Date: 10/26/2016 Procedures Surgical History Date Name Laterality Status Provider Name and Address Organization Details Recorded Time 025 DAK - [place] completed Sharon Flanagan [facility] 12/22/2024 14:36:37 017 Audiogram completed Krupa Avilez [facility] 10/26/2016 13:25:48 017 Tympanometry completed Krupa Avilez [facility] 10/26/2016 13:25:47 Cholecystectomy completed Adela Ram [facility] 10/26/2016 13:16:06 extraction of cataract completed Krystyna Godoy [facility] 12/22/2024 14:02:14 Imaging Results None recorded. Procedure Notes None recorded. Medical Equipment None Reported. Allergies No known drug allergies Medications Name Sig Start Date Stop Date Status Note LastModified by Organization Details LastModified Time losartan 50 mg tablet active Not Available Not Available No t Available atorvastati n 10 mg tablet active Not Available Not Available Not Available azithromyci n 250 mg tablet 10/26 completed Not Available Not Available Not Available ofloxacin 0.3 % eye drops INSTILL 1 DROP INTO OPERATIVE EYE 4 TIMES DAILY FOR 7 DAYS 12/22 completed Not Available Not Available Not Available aspirin 81 mg tablet,randal yed release Take 1 tablet every day by oral route. active Not Available Not Available No t Available ketorolac 0.5 % eye drops STARTING 3 DAYS BEFORE SURGERY USE 1 DROP INTO OPERATIVE EYE 4 TIMES A DAY FOR 10 DAYS THEN DECREASE TO TWICE A DAY FOR 14 DAYS 12/22 completed Not Available Not Available Not Available levothyroxi ne 100 mcg tablet active Not Available Not Available Not Available prednisolon e acetate 1 % eye drops,suspe nsion INSTILL 1 DROP INTO OPERATIVE EYE 4 TIMES DAILY FOR 7 DAYS THEN DECREASE TO TWICE A DAY 14 DAYS 12/22 completed Not Available Not Available Not Available raloxifene 60 mg tablet active Not Available Not Available Not Available ipratropium bromide 21 mcg (0.03 %) nasal spray active Not Available Not Available Not Available rosuvastati n 5 mg tablet TAKE 1 TABLET BY MOUTH ONCE DAILY active Not Available Not Available No t Available magnesium 12/22 completed Not Available Not Available Not Available levocetiriz ine 5 mg tablet 10/26 completed Not Available Not Available Not Available Probiotic active Not Available Not Ama ilable Not Available Vitals Date Recorded Body weight Body height Body mass index (BMI) Body temperature Heart rate Systolic And Diastolic Provider Name and Address Organization Details Last Updated DateTime 7 79548.6 4 g 158.75 cm 26.4 kg/m2 98.2 [degF] 82 /min 136/71 mm[Hg] Adela Ram [facility] 7 13:19:49 Social History Question Answer Notes LastModified by Organizat ion Details LastModified Time Tobacco Smoking Status Never Smoker Adela Ram [facility] 10/26/2016 13:15:31 Sunscreen Use? Yes [email or web address] Informatio n not available 12/22/2024 Tanning Bed Use No [email or web address] Informati on not available 12/22/2024 How Much Tobacco Do You Smoke? No [email or web address] Information not available 10/26/2016 Sex: Unknown Functional Status None recorded. Mental Status None recorded. Family History Relationship Description Onset Age of this Age Resolved Age Notes LastModified by Organization Details LastModified Time Brother Heart disease [email or web address] Not available 13:14:59 Brother Hypertensive disorder gchristensen Not available 13:15:14 Father Hypertensive disorder [email or web address] Not available 13:15:14 Father Family history of stroke [email or web address] Not available 13:15:22 Sister Hypertensive disorder [email or web address] Not available 13:15:14 Medical History Condition Response Thyroid Problems Y Hypertension Y Gynecological HistoryNo gynecological history recorded. Obstetrics History GPAL:G 0 P 0 0 0 0 Past Encounters Encounter ID Performer Location Encounter Start Date Encounter Closed Date Diagnosis/Indication Diagnosis SNOMED-CT Code Diagnosis ICD10 Code Diagnosis IMO Codes Diagnosis Note [id number] BELLA [facility] [place] [facility] [address] [place] [address] 10/04/2016 14:48:37 10/04/2016 15:39:45 [id number] [facility] [address] 10/16/2016 22:04:47 10/16/2016 22:04:47 [id number] MD [facility]A [facility] [address] [place] [address] 10/26/2016 13:00:07 10/26/2016 13:54:15 Asymmetrical sensorineural hearing loss 541096560 H90.5 Chronic pain in face 432 942097 R51 trigeminal symptoms Numbness of face 7202940 09 R20.0 Tinnitus of right ear 48 54056752 108 H93.11 [id number] SWETHA FOX MD [facility] [address] [place] [address] 12/22/2024 13:49:36 12/22/2024 14:43:10 Multiple benign melanocytic nevi 561905301 D22.5 - Benign moles seen on exam today - SPF 30 or higher broad-spec trum sunscreen recommende d with re-applica tion every 2 hours - Discussed sun protection measures, including wide-brimm ed hat, sun-protec tive clothing, and avoidance of sun during peak hours of 10am-4pm - Avoid tanning beds as these can increase the chances of all 3 types of skin cancer - Instructed to monitor for changes and to call us for appointmen t with any changing or worrisome lesions Seborrheic keratosis 394 799638 L82.1 - Benign overgrowth s of skin - Hereditary Senile angioma 9033661 I 78.1 - Benign blood vessel growths - Hereditary Solar lentigo 14575932 L 81.4 - Benign brown spots - Sun-induce d Actinic keratosis 134413 007 L57.0 66721 Actinic keratoses are precancero us lesions that may progress to squamous cell carcinoma if untreated. UV light and genetics may increase risk. Treated lesions should blister, scab over, and heal within a few weeks. If treated lesion(s) does not resolve within 1-2 months, patient agrees to follow up for re-evaluat ion. Health Concerns Section Related Observation LastModified by Organization Detai ls LastModified Time None Recorded Concern Status LastModified by Organization Details LastModified Time None Recorded Advance Directives Directive None Recorded Payers Insurance Date Sequence Insurance Name Policy Number Policy Weinberg Covered Member ID Weinberg Member ID Guarantor Name 12/25/2024 1 [facility] (MEDICARE REPLACEMENT/A DVANTAGE - PPO) [id number] Anca Martinez [id number] Anca Martinez Notes Date Note Type Note Provider Name and Address Organization Details Recorded Time 10/26/2016 text/html Anca is a 71-year-old female here today for a consult of hearing loss and right facial numbness/pain. She saw Dr. Pérez last month for an audiogram. She has some asymmetry to her hearing. She complains of right tinnitus. She complains of right facial tingling that starting two months ago. She does report pain on the right side of her face, and that began two years ago. She says that her PCP has put her on antihistamines in the past for facial pain with no relief. 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 LÓPEZ PARK MD [address] [place] [address], [phone], [facility] 10/26/2016 15:05:43 12/22/2024 text/html ROS as noted in the HPI Here for a full body skin examination - last skin check was in 02/2023- no history of skin cancer- spots of concern today: none SWETHA FOX MD [address] [place] [address], [phone], [facility] 12/22/2024 19:36:32 OBGyn Episode No OBEpisode recorded.
--- OUTSIDE RECORDS SUMMARY | 2025-05-28 07:41 | XMS_ITS | Clinical Summary ---
Author Organization [facility] Address [address] [place] [address] Care Team Providers Care Geography Teacher Name Role Phone Alyssa Loving MD Primary Care Provider [phone] Allergies No known active allergies Medications metoprolol tartrate (LOPRESSOR) 25 MG tablet Take 25 mg by mouth Daily. Active atorvastatin (LIPITOR) 10 MG tablet Take 10 mg by mouth Every Night. Active raloxifene (EVISTA) 60 MG tablet Take 60 mg by mouth Daily. Active levothyroxine (SYNTHROID, LEVOTHROID) 100 MCG tablet Take 100 mcg by mouth Daily. Active losartan (COZAAR) 50 MG tablet Take 50 mg by mouth Daily. Active aspirin 81 MG chewable tablet Chew 81 mg Daily. Active Family History Medical History Relation Name Comments Heart disease Brother Stroke Father Relation Name Status Comments Brother Father Social History Tobacco Use Types Packs/Day Years Used Date Smoking Tobacco: Never Smokeless Tobacco: Never Alcohol Use Standard Drinks/Week Comments No 0 (1 standard drink = 0.6 oz pur e alcohol) Abuse Screen Answer Date Recorded Unsafe at Home or Work/School Not on file Feels Threatened by Someone? Not on file 03/2023 Does Anyone Keep You from Co ntacting Others or Doint Things Outside the Home? Not on file 04/23/2023 Physical Sign of Abuse Present Not on file 1 Housing Stability Answer Date Recorded Current Living Arrangements Not on file 03/2023 Potentially Unsafe Housing Conditions Not on medhat e 04/23/2023 Family and Community Support Answer Milan e Recorded Help with Day-to-Day Activities Not on file 04/23/2023 Lonely or Isolated Not on file 04/23/2023 Employment Answer Date Recorded Do you want help finding or keeping work or a jazz b? Not on file 04/23/2023 Disabilities Answer Date Recorded Concentrating, Remembering, or Making Decisions Difficulty Not on file 04/23/2023 Doing Errands Independently Difficulty Not on fi le 04/23/2023 Education Answer Date Recorded Help with school or training? Not on file Preferred Language Not on file 04/23/2023 Comments Unknown Sex and Gender Information Value Date Recorded Sex Assigned at Not on file Legal Sex Female 10:50 AM EDT Gender Identity Not on file Sexual Orientation Not on file Last Filed Vital Signs Vital Sign Reading Time Taken Comments Blood Pressure 119/72 01/09/2017 12:00 PM EDT Post Ambulation Blood Pressure. Pulse 85 01/09/2017 12:00 PM EDT Temperature 37 C (98.6 F) 01/09/2017 7:50 AM EDT Respiratory Rate 13 01/09/2017 9:51 AM EDT Oxygen Saturation 96% 01/09/2017 12: 00 PM EDT Inhaled Oxygen Concentration - - Weight 64.4 kg (141 lb 15.6 oz) 01/09/2017 7:50 AM EDT Height 160 cm (5' 3 ) 01/09/2017 7:50 AM EDT Body Mass Index 25.15 01/09/2017 7:50 AM EDT Plan of Treatment Health Maintenance Due Date Last Done Comments DXA SCAN 1945 TDAP/TD VACCINES (1 - Tdap) 1965 COLOGUARD 1991 COLON CANCER SCREENING 5 YEAR SIGMOIDOSCOPY 1991 COLONOSCOPY [address] SCREENING [address] COLONOGRAPHY 1991 FECAL OCCULT BLOOD TEST 1991 FIT Testing (1 year) 1991 Pneumococcal Vaccine 50+ (1 of 1 - PCV) 1996 ZOSTER VACCINE (1 of 2) 1996 ANNUAL PHYSICAL 01/08/2017 HEPATITIS C SCREENING 01/08/2017 RSV Vaccine - Adults (1 - 1-dose 75+ series) 2 INFLUENZA VACCINE 02/13/2025 COVID-19 Vaccine ( - season) 2025 Insurance [id number] MEDIC[employer] REPL[facility] Advance Directives Documents on File Type Date Recorded Patient [employer] Senior [employer] Expl anation PATIENT ADVANCE DIRECTIVES - SCAN 09/28/2021 10:13 AM LIVING WILL/DURABLE POA/HANDWRITTEN DIRECTIVE Care Teams Geography Teacher Relationship Specialty Start Date End Date Alyssa Loving MD PCP - General Family Medicine 01/09/17
--- OUTSIDE RECORDS SUMMARY | 2025-05-28 07:41 | XMS_ITS | Clinical Summary ---
Author Organization [facility] Address [address] [place] [place] [address] Care Team Providers Care Linotypist Name Role Phone Anh Mon APRN Primary Care Provider [phone] Allergies Active Allergy Reactions Criticality Noted Date Comments Erythromycin Other - please docum ent in the comment field Low 09/23/2014 unsure which Mycin . caused blurred vision Medications Synthroid 100 MCG tablet 04/13/2022 Active bisoprolol (Zebeta) 5 MG tablet 04/20/2022 Active atorvastatin (Lipitor) 20 MG tablet 05/26/2022 Active aspirin 81 MG chewable tablet Chew 81 mg 1 (one) time each day. Active atorvastatin (Lipitor) 10 MG tablet Take 10 mg by mouth 1 (one) time each day. Active metoprolol tartrate (Lopressor) 25 MG tablet Take 25 mg by mouth 1 (one) time each day. Active raloxifene (Evista) 60 MG tablet 04/27/2022 Active losartan (Cozaar) 50 MG tablet 02/15/2022 Active Social History Tobacco Use Types Packs/Day Years Used Date Smoking Tobacco: Never Assessed Comments Unknown Sex and Gender Information Value Date Recorded Sex Assigned at Not on file Legal Sex Female 7:31 PM EDT Gender Identity Not on file Sexual Orientation Not on file Last Filed Vital Signs Vital Sign Reading Time Taken Comments Blood Pressure 150/87 06/27/2022 2:45 PM EST Pulse - - Temperature - - Respiratory Rate - - Oxygen Saturation - - Inhaled Oxygen Concentration - - Weight 67.1 kg (148 lb) 06/27/2022 2:45 PM EST Height 157.5 cm (5' 2 ) 06/27/2022 2:45 PM EST Body Mass Index 27.07 06/27/2022 2:45 PM EST Plan of Treatment Upcoming Encounters Date Type Department Care Team ([facility] st Contact Info) Description 01/26/2026 11:30 AM EDT Ovarian Cancer Screening [facility] [address] [place] [address] Health Maintenance Due Date Last Done Comments [facility]-Bone Density Scan 1945 [facility]-Depression Screening 1945 [facility]-Hepatitis C Screening 1945 [facility]-Medicare Annual Wellness (AWV) 1945 [facility]-Infant/Child/Adol SDOH Screenings 1945 [facility]- SDOH Screenings 1964 [facility]-Adult SDOH Screenings 1964 [facility]-Zoster Vaccines (1 of 2) 1996 [id number] Vaccine ( season) 2025 05/09/2023, 05/12/2021, 09/15/2020, Additional history exists [facility]-Influenza Vaccine (#1) 03/16/202504/14, 03/28/2023, 05/04/2022, Additional history exists [facility]-DTaP,Tdap,and Td Vaccines (2 - Td or Tdap) 04/14/2034 04/14/2024 [facility]-Pneumococcal Vaccine: 50+ Years Completed 05/04/2022, 05/05/2016 [facility]-Obesity Intervention Completed 06/27/2022 [facility]-RSV Vaccine: 60+ Years or Completed 03/28/2023 HPV Vaccines Aged Out No longer eligi ble based on patient's age to complete this topic [facility]-HIB Vaccines Aged Out No longer e ligible based on patient's age to complete this topic [facility]-Hepatitis A Vaccines Aged Out No longer eligible based on patient's age to complete this topic [facility]-IPV Vaccines Aged Out No longer e ligible based on patient's age to complete this topic [facility]-Rotavirus Vaccines Aged Out No lo nger eligible based on patient's age to complete [place] [address] Care Teams Linotypist Relationship Specialty Start Date End Date Anh Mon APRN [address] [place] [address] PCP - General 01/26/25
--- NOTE | 2025-05-28 08:00 | CT_ITS ---
FINAL REPORT TECHNIQUE: Thin section axial images were obtained through the paranasal sinuses without contrast. Reconstruction images were obtained from the axial data. Exam was performed using dose reduction techniques such as automated exposure control, adjustment of the mA and kV according to patient size, and use of iterative reconstruction technique. CLINICAL HISTORY: pain in the sinus cavity, evaluate mastoids COMPARISON: 11/29/2016 FINDINGS: The sinuses are clear. The mastoid air cells are clear. The ostiomeatal unit complexes are clear. Nasal septum is midline. There is no acute osseous abnormality. Remaining soft tissues are unremarkable. IMPRESSION: No acute findings. Reviewed, Interpreted and Dictated by Cain Porter MD Transcribed by Devika Kirkland Authenticated and [facility]
[2025-05-28 08:01] LABS: Hematocrit 38.6 % (37.0-47.0); Hemoglobin 12.5 g/dL (12.2-16.2); Immature Granulocytes % 0.2 %; Mean Corpuscular HGB Conc 32.4 g/dL (31.8-35.4); Mean Corpuscular Hemoglobin 30.0 pg (27.0-31.2); Mean Corpuscular Volume 92.8 fl (81-99); Nucleated Red Blood Cells % 0 %; Platelet Count 201 K/mm3 (142-424); Red Blood Count 4.16 M/mm3 (4.20-5.40); Red Cell Distribution Width-SD 45.4 fL; White Blood Count 4.9 K/mm3 (4.8-10.8)
[2025-05-28 08:53] LABS: Alanine Aminotransferase 27 U/L (12-78); Albumin Level 4.3 g/dl (3.5-5.0); Alkaline Phosphatase 65 U/L (38-126); Anion Gap 9.3 mEq/L (5-15); Aspartate Amino Transferase 31 U/L (14-36); Bilirubin,Direct 0.1 mg/dl (0.0-0.4); Bilirubin,Indirect 0.4 mg/dL (0.0-0.9); Bilirubin,Total 0.5 mg/dl (0.2-1.3); Bilirubin,Unconjugated 0.4 mg/dL (0.0-1.1); Blood Urea Nitrogen 22 mg/dl (7-17); Calcium 9.5 mg/dl (8.4-10.2); Carbon Dioxide 29 mmol/L (22.0-30.0); Chloride 102 mmol/L (98-107); Cholesterol 184 mg/dl (140-200); Creatinine,Serum 0.80 mg/dl (0.52-1.04); Estimated Glomerular Filt Rate 69 ml/min (>60); GFR (African American) 84 ML/MIN (>60); Glucose 100 mg/dl (74-100); HDL Cholesterol 97 mg/dl (40-60); Magnesium 2.0 mg/dl (1.6-2.3); Potassium 4.3 mmoL/L (3.5-5.1); Sodium 136 mmol/L (136-145); Total Protein,Serum 6.7 g/dl (6.3-8.2); Triglycerides 136 mg/dl (30-150)
[2025-05-28 09:09] LABS: Free T4 (Free Thyroxine) 0.85 ng/dl (0.78-2.19)
[2025-05-28 09:23] LABS: Thyroid Stimulating Hormone 2.28 uIU/mL (0.465-4.68)
== END 2025-05-28 23:59 | disposition home or self-care (01) ==
LOC: RAD 07:38
PROVIDERS: Physician Assistant; PCP Nurse Practitioner Family; Visit Provider Nurse Practitioner
DX: H92.01 Otalgia, right ear (principal); I25.10 Atherosclerotic heart disease of native coronary artery without angina pectoris; E78.5 Hyperlipidemia, unspecified; I10 Essential (primary) hypertension
CPT/HCPCS: 36415; 70486; 80048; 80061; 80076; 83735; 84439; 84443; 85025